=== PATIENT | female | born 1980 | race Two or more races ===

== ENCOUNTER 2021-08-28 10:32 | Emergency (ER) | payer MEDICAID, SELFPAY ==
[2021-08-28 10:36] VITALS: BP 115/71; PULSE 86; RESP 16; TEMP 36.6; O2SAT 99; BMI 21.2
[2021-08-28 10:47] LABS: MANUAL DIFF FLAG NO
[2021-08-28 10:49] LABS: Basophils Percent Auto 0.3 % (0-2); Eosinophils Absolute Auto 0.1 X10*3/uL (0.0-0.4); Eosinophils Percent Auto 0.9 % (0-4); Hemoglobin 13.4 g/dl (12.0-16.0); Imm Gran Abs Auto 0.02 X10*3/uL (0.00-0.03); Imm Gran Pct Auto 0.3 % (0.0-0.4); Lymphocytes Absolute Auto 2.3 X10*3/uL (1.2-4.9); Lymphocytes Percent Auto 34.1 % (20-40); Mean Corpuscular HGB Conc 33.5 g/dl (31.0-35.0); Mean Corpuscular Hemoglobin 31.2 pg (27.0-33.0); Mean Platelet Volume 10.1 fL (9.4-12.3); Monocytes Absolute Auto 0.5 X10*3/uL (0.1-1.2); Neutrophils Absolute Auto 3.8 x10*3/uL (2.0-8.3); Neutrophils Percent Auto 56.4 % (45-73); Platelet Count 180 X10*3/uL (160-400); Red Cell Distribution Width 13.1 % (11.0-16.0); White Blood Count 6.7 X10*3/uL (4.8-10.8)
[2021-08-28 11:07] LABS: Alanine Aminotransferase 11 U/L (0-31); Albumin Level 4.3 g/dL (3.5-5.0); Alkaline Phosphatase 63 U/L (39-117); Anion Gap 7 (12-20); Aspartate Amino Transferase 15 U/L (5-31); Bilirubin Total 0.7 mg/dL (0.0-1.0); Blood Urea Nitrogen 10 mg/dL (9-16); Calcium 9.8 mg/dL (8.4-10.2); Carbon Dioxide 29 mmol/L (22-29); Chloride 105 mmol/L (96-108); Creatinine Clr Calc Pharmacy 67.1; Estimated Glomerular Filt Rate > 60; Glucose Random 76 mg/dL (60-115); Potassium 3.9 mmol/L (3.3-5.1); Sodium 137 mmol/L (135-145); Total Protein 6.9 g/dL (6.5-8.0)
[2021-08-28 11:26] VITALS: BP 116/61; PULSE 68; RESP 15; TEMP 37.1; O2SAT 98
[2021-08-28 11:47] LABS: Appearance Urine HAZY; Color Urine YELLOW; Glucose Urine UA NEG (NEG); Leukocyte Esterase Urine NEG (NEG); Nitrite Urine NEG (NEG); PH 7.5 (5.0-8.0); Urine Blood NEG (NEG); Urine Ketones NEG (NEG); Urine Protein NEG (NEG-TRACE)
--- NOTE | 2021-08-28 12:15 | ECG_ITS ---
Test Reason : high blood pressure Blood Pressure : / mmHG Vent. Rate : 064 BPM Atrial Rate : 064 BPM P-R Int : 164 ms QRS Dur : 072 ms QT Int : 366 ms P-R-T Axes : 033 053 042 degrees QTc Int : 377 ms Normal sinus rhythm Normal ECG No previous ECGs available Referred By: Nikki Egan Electronically Signed By:CHRISTY FERNANDEZ MD
[2021-08-28 12:41] LABS: RBC Urine 0 /HPF (0); Squamous Epithelial Cell Urine TRACE /LPF; WBC Urine 0 /HPF (0-4)
--- NOTE | 2021-08-28 12:46 | ED.GENADULT ---
HPI - General Adult General Chief complaint: General Medical Stated complaint: HBP Time Seen by Provider: 08/28/21 11:05 Source: patient Mode of arrival: ambulatory Limitations: language barrier ( Taiwanese-speaking medical collections representative utilized) History of Present Illness HPI narrative: patient presents to the emergency department for evaluation of concerns about elevated blood pressure. She reports that last night while at rest she began feeling palpitations, tightness in her chest and headache. She reports feeling similar symptoms in the past when she had elevated blood pressure. She states that her blood pressure becomes elevated based on her emotions. One year ago when she was residing in [place] she was on a blood pressure medication which she does not recall the name of. She has not been taking this medication over the past year, she is currently establishing care with a new primary care provider. She denies fevers, chills, nasal congestion, sore throat, neck pain, shortness of breath, difficulty breathing, dyspnea on exertion, nausea, vomiting, abdominal pain, dysuria, urinary frequency, possibility of , pedal edema, generalized weakness, dizziness, lightheadedness. Related Data Allergies Allergy/AdvReac Type Severity Reaction Status Date / Time Sulfa (Sulfonamide Allergy Unknown Unknown Verified 08/28/21 12:15 Antibiotics) Review of Systems Review of Systems: Constitutional : No Weight loss, No Fever, No Chills ENT/Mouth :? No sore throat, No Rhinorrhea Eyes: No Eye Pain, No Swelling Cardiovascular : pos Chest Pain, no SOB, no Dyspnea on Exertion, No Orthopnea, No Edema, positive Palpitations Respiratory : No Cough, No Sputum Gastrointestinal : No Nausea, No Vomiting, No Diarrhea, No abdominal Pain, No Hematochezia, No Melena Genitourinary : No Dysuria, No Urinary Frequency Musculoskeletal : No joint pain, No Myalgias, No Joint Swelling Skin : No Skin Lesions, No rash Neuro : No Weakness, No Numbness, No Dizziness, positive Headache Psych : No Anxiety/Panic, No Depression Heme/Lymph: No Bruising, No Lymphadenopathy Endocrine : No Polyuria, No Polydipsia Yes all other systems are reviewed and are negative [facility] Past Medical History Attestation statement: The following information was validated with the patient. Source: old records reviewed Medical History Fibromyalgia Social History Social History Advance Directives: No Advance Directives Information Provided: Yes Patient : No Physical Exam ED Vital Signs: Vital Signs - 24 hr 08/28/21 10:36 08/28/21 11:26 08/28/21 13:24 Temperature 97.9 F 98.8 F 98.6 F Pulse Rate 86 68 69 Respiratory Rate 16 15 15 Blood Pressure 115/71 116/61 93/59 L Pulse Oximetry 99 98 97 BMI result Body Mass Index 21.2 Vital signs have been reviewed as normal and appeared to be correct. Blood pressure normal.? Heart rate normal.? Respiration rate normal. Temperature normal.? Oxygen saturation normal. Appearance: Alert.?Oriented to person, place and time. No acute distress.?Normal affect. Eyes: Pupils equal, round and reactive to light.? ENT: Pharynx normal.?? Neck: Normal inspection.? Neck supple.?? CVS: Heart sounds normal. Normal heart rate and rhythm.? Pulses normal.?? Respiratory: No respiratory distress.? Lung sounds clear to auscultation bilaterally?? Abdomen: Soft and non-tender. Normoactive bowel sounds. ? Skin: Skin warm and dry.? Normal skin color.? Extremities: No lower extremity edema.? No calf ttp? Neuro: Moves all extremities spontaneously. Sensation intact bilaterally. CN II-XII intact. No focal neuro deficits. Ambulates with normal steady gait. Course Course Course Narrative: patient is a 41-year-old female with a past medical history of fibromyalgia, hypertension, tubal ligation presenting to the emergency department for evaluation of palpitations, chest tightness, headache, and concern for elevated blood pressure. On exam today blood pressure consistently normal, she is afebrile, without tachycardia, tachypnea, or hypoxemia. She is overall well appearing, ambulatory with a steady gait. Reports that her symptoms have significantly decreased since last night. Serum labs obtained reveal a normal CBC, normal CMP, urinalysis without sign of infection, COVID- 19 and influenza testing are negative. Troponin <3.5 and EKG reveals normal sinus rhythm without acute concern for ischemia heart score 0, unlikely to be ACS. Wells score 0, PERC negative, no hypoxia tachycardia or shortness of breath, unlikely to be pulmonary embolism. not currently having any abdominal symptoms. I discussed all these findings with the patient, advised plan of care for discharge home and outpatient follow-up with primary care provider, discussed reasons to return back to the emergency department, all questions were answered. Medical Decision Making Medical Records Medical records reviewed: Yes I reviewed the patient's medical records. Lab Data Lab results reviewed: Yes I reviewed the patient's lab results. Result diagrams: 08/28/21 10:42 08/28/21 10:42 Labs: Lab Results 08/28/21 08/28/21 08/28/21 Range/Units 10:42 10:42 10:42 WBC 6.7 (4.8-10.8) X10*3/uL RBC 4.30 (4.20-5.50) X10*6/uL Hgb 13.4 (12.0-16.0) g/dl Hct 40.0 (37.0-47.0) % MCV 93.0 (80.0-98.0) fL MCH 31.2 (27.0-33.0) pg MCHC 33.5 (31.0-35.0) g/dl RDW 13.1 (11.0-16.0) % Plt Count 180 (160-400) X10*3/uL MPV 10.1 (9.4-12.3) fL Immature Gran % (Auto) 0.3 (0.0-0.4) % Neut % (Auto) 56.4 (45-73) % Lymph % (Auto) 34.1 (20-40) % [place] % (Auto) 8.0 (2-11) % Eos % (Auto) 0.9 (0-4) % Baso % (Auto) 0.3 (0-2) % Lymph # (Auto) 2.3 (1.2-4.9) X10*3/uL [place] # (Auto) 0.5 (0.1-1.2) X10*3/uL Eos # (Auto) 0.1 (0.0-0.4) X10*3/uL Baso # (Auto) 0.0 (0.0-0.2) X10*3/uL Abs Immat Gran (auto) 0.02 (0.00-0.03) X10*3/uL Absolute Neuts (auto) 3.8 (2.0-8.3) x10*3/uL Absolute Nucleated RBC 0.000 (0.0-0.012) X10*3/uL Nucleated RBC % (auto) 0.0 (0.0-0.2) /100WBC Sodium 137 (135-145) mmol/L Potassium 3.9 (3.3-5.1) mmol/L Chloride 105 (96-108) mmol/L Carbon Dioxide 29 (22-29) mmol/L Anion Gap 7 L (12-20) BUN 10 (9-16) mg/dL Creatinine 0.76 (0.5-1.4) mg/dL Estim Creat Clear Calc 67.1 Estimated GFR > 60 Random Glucose 76 (60-115) mg/dL Calcium 9.8 (8.4-10.2) mg/dL Total Bilirubin 0.7 (0.0-1.0) mg/dL AST 15 (5-31) U/L ALT 11 (0-31) U/L Alkaline Phosphatase 63 (39-117) U/L Troponin I High Sens < 3.5 (<3.5-17.0) ng/L Total Protein 6.9 (6.5-8.0) g/dL Albumin 4.3 (3.5-5.0) g/dL Urine Color Urine Appearance Urine pH (5.0-8.0) Ur Specific [place] (1.005-1.025) Urine Protein (NEG-TRACE) MG/DL Urine Glucose (UA) (NEG) MG/DL Urine Ketones (NEG) MG/DL Urine Blood (NEG) Urine Nitrite (NEG) Ur Leukocyte Esterase (NEG) Urine RBC (0) /HPF Urine WBC (0-4) /HPF Ur Squamous Epith Cells /LPF Urine Bacteria /LPF COVID-19 (MIGUEL A) (Negative) COVID-19 Clin Com Influenza Type A (ELIANA) (Negative) Influenza Type B (ELIANA) (Negative) Influenza A & B Note 08/28/21 08/28/21 08/28/21 Range/Units 11:40 12:31 12:31 WBC (4.8-10.8) X10*3/uL RBC (4.20-5.50) X10*6/uL Hgb (12.0-16.0) g/dl Hct (37.0-47.0) % MCV (80.0-98.0) fL MCH (27.0-33.0) pg MCHC (31.0-35.0) g/dl RDW (11.0-16.0) % Plt Count (160-400) X10*3/uL MPV (9.4-12.3) fL Immature Gran % (Auto) (0.0-0.4) % Neut % (Auto) (45-73) % Lymph % (Auto) (20-40) % [place] % (Auto) (2-11) % Eos % (Auto) (0-4) % Baso % (Auto) (0-2) % Lymph # (Auto) (1.2-4.9) X10*3/uL [place] # (Auto) (0.1-1.2) X10*3/uL Eos # (Auto) (0.0-0.4) X10*3/uL Baso # (Auto) (0.0-0.2) X10*3/uL Abs Immat Gran (auto) (0.00-0.03) X10*3/uL Absolute Neuts (auto) (2.0-8.3) x10*3/uL Absolute Nucleated RBC (0.0-0.012) X10*3/uL Nucleated RBC % (auto) (0.0-0.2) /100WBC Sodium (135-145) mmol/L Potassium (3.3-5.1) mmol/L Chloride (96-108) mmol/L Carbon Dioxide (22-29) mmol/L Anion Gap (12-20) BUN (9-16) mg/dL Creatinine (0.5-1.4) mg/dL Estim Creat Clear Calc Estimated GFR Random Glucose (60-115) mg/dL Calcium (8.4-10.2) mg/dL Total Bilirubin (0.0-1.0) mg/dL AST (5-31) U/L ALT (0-31) U/L Alkaline Phosphatase (39-117) U/L Troponin I High Sens (<3.5-17.0) ng/L Total Protein (6.5-8.0) g/dL Albumin (3.5-5.0) g/dL Urine Color YELLOW Urine Appearance HAZY Urine pH 7.5 (5.0-8.0) Ur Specific [place] 1.020 (1.005-1.025) Urine Protein NEG (NEG-TRACE) MG/DL Urine Glucose (UA) NEG (NEG) MG/DL Urine Ketones NEG (NEG) MG/DL Urine Blood NEG (NEG) Urine Nitrite NEG (NEG) Ur Leukocyte Esterase NEG (NEG) Urine RBC 0 (0) /HPF Urine WBC 0 (0-4) /HPF Ur Squamous Epith Cells TRACE /LPF Urine Bacteria NONE /LPF COVID-19 (MIGUEL A) Negative (Negative) COVID-19 Clin Com See Note Influenza Type A (ELIANA) Negative (Negative) Influenza Type B (ELIANA) Negative (Negative) Influenza A & B Note See Note ECG Data Attestation: I personally reviewed and interpreted this ECG as follows: Interpretation: Rate: Sixty-four Rhythm:? normal sinus rhythm [place]:? normal Normal P waves.? Normal JOHN.?? Normal QRS complex.?? ST T wave :?? no ST elevation, no ST depression, no T-wave inversion qTC: 377 prior studies:? none available for review The study has been interpreted contemporaneously by me. Discharge Plan Discharge Clinical Impression: Atypical chest pain Patient Disposition: Home, Self-Care Instructions: Chest Pain (ED), Noncardiac Chest Pain (ED), Panic Attack (ED) Additional Instructions: As we discussed, your blood pressure was normal today. Your COVID- 19 and influenza testing were normal. Labs were normal. please follow-up with your primary care provider in 1-3 days. Return to the emergency department with any new or worsening symptoms or concerns. Interventions: ED Discharge Assessment Last Done: 08/28/21 13:49 Discharge Date/Time: 08/28/21 13:50 Print Language: Taiwanese
[2021-08-28 12:58] LABS: IDNOW Serial# 16C4AD1C; Influenza A Negative (Negative); Influenza B2 Negative (Negative)
[2021-08-28 13:02] LABS: COVID-19 Test Negative (Negative)
[2021-08-28 13:19] LABS: Troponin-I High Sensitivity < 3.5 ng/L (<3.5-17.0)
[2021-08-28 13:24] VITALS: BP 93/59; PULSE 69; RESP 15; TEMP 37; O2SAT 97
== END 2021-08-28 13:50 | disposition home or self-care (01) ==
PROVIDERS: Nurse Practitioner Family; Emergency Provider Emergency Medicine Emergency Medical Services
DX: R07.89 Other chest pain (principal); I10 Essential (primary) hypertension; Z20.822 Contact with and (suspected) exposure to COVID-19; Z79.899 Other long term (current) drug therapy
CPT/HCPCS: 36415; 80053; 81001; 84484; 85025; 87502; 87635; 93005; 99283; 99284

== ENCOUNTER 2021-10-19 08:47 | Outpatient (REF) | payer MEDICAID, SELFPAY ==
[2021-10-19 09:17] LABS: COVID-19 Test Negative (Negative)
== END 2021-10-19 08:48 | disposition home or self-care (01) ==
LOC: HO.LAB 08:47
PROVIDERS: Visit Provider Internal Medicine
DX: Z20.822 Contact with and (suspected) exposure to COVID-19 (principal)
CPT/HCPCS: 87635; C9803

== ENCOUNTER 2021-11-03 14:24 | Outpatient (REF) | payer MEDICAID, SELFPAY ==
[2021-11-03 14:52] LABS: COVID-19 Test Positive (Negative); IDNOW Serial# 08D9AD1C
== END 2021-11-03 14:25 | disposition home or self-care (01) ==
LOC: HO.LAB 14:24
PROVIDERS: Visit Provider Internal Medicine
DX: Z20.822 Contact with and (suspected) exposure to COVID-19 (principal)
CPT/HCPCS: 87635; C9803

== ENCOUNTER 2022-04-08 10:55 | Outpatient (REF) | payer MEDICAID, SELFPAY ==
--- NOTE | ~2022-04-08 | MM_ITS ---
EXAMINATION: MM SCREENING DIGITAL BREAST TOMOSYNTHESIS, BILATERAL CLINICAL INFORMATION: Screening. Asymptomatic. Status post bilateral breast reduction surgery. The lifetime risk of breast cancer based on the Tyrer-Cuzick Model is 8%. COMPARISON: Mammography: None. TECHNIQUE: Digital breast tomosynthesis is performed in both the craniocaudal and mediolateral oblique views along with computer-aided detection (CAD). Synthesized 2D images are generated from the tomosynthesis. FINDINGS: The breasts are heterogeneously dense, which may obscure small masses (ACR BI-RADS breast composition Category c). Within the left breast approximately 5 cm from the nipple there is a well-circumscribed 4 mm density seen laterally. Spot compression film and ultrasound recommended for this lesion. Within the right breast there are multiple circumscribed densities present. In the inferior aspect there is a 10 x 7 mm density 6 cm from the nipple. In the inferior aspect of the right breast there is also a 6 mm circumscribed density approximately 6 cm from nipple. Further evaluation with spot compression views and ultrasound recommended. MM/MM tomosynthesis screening BI IMPRESSION: Bilateral breast densities for further evaluation as described. ASSESSMENT: BI-RADS 0: Incomplete - Need Additional Imaging Evaluation RECOMMENDATION: 1. Additional views of the bilateral breasts. 2. Targeted ultrasound if warranted after review of the additional views. 3. Radiology department staff will contact the patient for additional imaging. This patient's information was entered into a reminder system with a target due date for their next mammogram.
== END 2022-04-08 10:56 | disposition home or self-care (01) ==
LOC: HO.MAMMO 10:55
PROVIDERS: PCP Registered Nurse; Visit Provider Registered Nurse
DX: Z12.31 Encounter for screening mammogram for malignant neoplasm of breast (principal)
CPT/HCPCS: 77063; 77067

== ENCOUNTER 2022-04-30 08:48 | Outpatient (REF) | payer MEDICAID, SELFPAY ==
--- NOTE | ~2022-04-30 | US_ITS ---
EXAMINATION: MM DIAGNOSTIC DIGITAL BREAST TOMOSYNTHESIS, BILATERAL US BREAST TARGETED, BILATERAL CLINICAL INFORMATION: Bilateral circumscribed densities not identified on prior studies of 10/12/2017 and 11/07/2015. COMPARISON: Mammography: 10/12/2017 and 11/07/2015. TECHNIQUE: Digital breast tomosynthesis is performed. 2D images are generated from the tomosynthesis. The following views are obtained: Spot compression views and craniocaudal and mediolateral oblique projections bilaterally. Bilateral targeted breast ultrasound. FINDINGS: The breasts are heterogeneously dense, which may obscure small masses (ACR BI-RADS breast composition Category c). Additional imaging of both breasts demonstrates persistence of multiple circumscribed densities as described previously. Targeted right and left breast ultrasound demonstrated numerous simple-appearing cysts with no abnormal solid mass or region of abnormal distal sound shadowing appreciated. Results are discussed with the patient at time of visit. US/US breast LT limited IMPRESSION: No evidence of malignancy. Bilateral breast cysts. ASSESSMENT: BI-RADS 2: Benign. RECOMMENDATION: Routine annual mammography screening due in 12 months. This patient's information was entered into a reminder system with a target due date for their next mammogram.
--- NOTE | ~2022-04-30 | US_ITS ---
EXAMINATION: MM DIAGNOSTIC DIGITAL BREAST TOMOSYNTHESIS, BILATERAL US BREAST TARGETED, BILATERAL CLINICAL INFORMATION: Bilateral circumscribed densities not identified on prior studies of 10/12/2017 and 11/07/2015. COMPARISON: Mammography: 10/12/2017 and 11/07/2015. TECHNIQUE: Digital breast tomosynthesis is performed. 2D images are generated from the tomosynthesis. The following views are obtained: Spot compression views and craniocaudal and mediolateral oblique projections bilaterally. Bilateral targeted breast ultrasound. FINDINGS: The breasts are heterogeneously dense, which may obscure small masses (ACR BI-RADS breast composition Category c). Additional imaging of both breasts demonstrates persistence of multiple circumscribed densities as described previously. Targeted right and left breast ultrasound demonstrated numerous simple-appearing cysts with no abnormal solid mass or region of abnormal distal sound shadowing appreciated. Results are discussed with the patient at time of visit. US/US breast RT limited IMPRESSION: No evidence of malignancy. Bilateral breast cysts. ASSESSMENT: BI-RADS 2: Benign. RECOMMENDATION: Routine annual mammography screening due in 12 months. This patient's information was entered into a reminder system with a target due date for their next mammogram.
== END 2022-04-30 08:49 | disposition home or self-care (01) ==
LOC: HO.MAMMO 08:48
PROVIDERS: PCP Registered Nurse; Visit Provider Registered Nurse
DX: R92.2 Inconclusive mammogram (principal)
CPT/HCPCS: 76642; 77061; 77065

== ENCOUNTER 2022-05-12 08:00 | Outpatient (REF) | payer MEDICAID, SELFPAY ==
--- NOTE | ~2022-05-12 | MR_ITS ---
EXAMINATION: MR BRAIN WITHOUT CONTRAST CLINICAL INFORMATION: 41-year-old with self-reported cognitive problems and migraines. Memory changes. COMPARISON: None TECHNIQUE: Routine multiplanar multisequence MR imaging of the brain was done without IV contrast. FINDINGS: Brain Volume: Within normal limits within the limitations of qualitative assessment. Structural: No malformations. Brain and Meninges: DWI sequence demonstrates no restricted diffusion to suggest acute or subacute cerebral ischemia. Gradient refocused imaging demonstrates no abnormal susceptibility-weighted signal loss to suggest hemorrhage, hemosiderin staining or abnormal mineralization. The brain is normal in morphology and signal intensity. Matthews-white matter differentiation is well maintained. Mildly prominent perivascular space noted in the inferolateral basal ganglia on the right and smaller perivascular spaces on the left. Normal variants. Incidental note is made of a slightly more prominent focus of T1 shortening in the posterior pituitary measuring 3 mm which could reflect a pars intermedia cyst. Ventricles and Subarachnoid Spaces: The ventricular system and subarachnoid spaces are within normal range; there is no hydrocephalus. Orbital Structures: The visualized orbital structures are grossly unremarkable within the limitations of the study. Vascular: Signal voids are noted in the visualized major intracranial vessels. Osseous Structures, Sinuses/Mastoids, Extracranial Soft Tissues: Unremarkable MR/MR head/brain wo con IMPRESSION: 1. No acute intracranial process. No evidence for hemorrhage, infarction, extra-axial fluid collection, significant space-occupying process, mass effect or hydrocephalus. 2. Possible 3 mm incidental pars intermedia cyst in the posterior pituitary gland. 3. Grossly normal brain volume within the limitations of a qualitative assessment.
== END 2022-05-12 08:01 | disposition home or self-care (01) ==
LOC: HO.MRI 08:00
PROVIDERS: PCP Registered Nurse; Visit Provider Registered Nurse
DX: R41.3 Other amnesia (principal)
CPT/HCPCS: 70551

== ENCOUNTER 2022-09-03 13:41 | Outpatient (REF) | payer MEDICAID, SELFPAY ==
--- NOTE | ~2022-09-03 | US_ITS ---
EXAMINATION: US PELVIS CLINICAL INFORMATION: Abnormal uterine bleeding. COMPARISON: None available. TECHNIQUE: Ultrasound of the pelvis is performed using both transabdominal and transvaginal transducers along with Doppler. Transvaginal imaging is performed due to inadequate visualization transabdominally. FINDINGS: Uterus: The uterus is anteverted and measures 11.3 x 3.8 x 5.1 cm. The double wall endometrial thickness is 7 mm. The uterus is smooth in contour and has normal myometrial echogenicity. No visible fibroid. Adnexa: Both ovaries are visualized. There is normal color flow to the adnexa. There is no ovarian torsion. There is no pelvic ascites or fluid collection. Right ovary measures 2.4 x 1.7 x 2.3 cm. Volume 4.9 mL. Left ovary measures 3.0 x 2.5 x 2.1 cm. Volume 8.3 mL. US/US pelvic and transvaginal IMPRESSION: Normal pelvic ultrasound.
== END 2022-09-03 13:42 | disposition home or self-care (01) ==
LOC: HO.US 13:41
PROVIDERS: PCP Registered Nurse; Visit Provider Advanced Practice Midwife
DX: N93.9 Abnormal uterine and vaginal bleeding, unspecified (principal)
CPT/HCPCS: 76830; 76856

== ENCOUNTER 2023-05-24 17:38 | Outpatient (REF) | payer MEDICAID, SELFPAY ==
[2023-05-24 18:57] LABS: Influenza A PCR NEGATIVE (Negative); Influenza B PCR NEGATIVE (Negative); Resp Syncy Virus RNA Qual PCR NEGATIVE (Negative); SARS COV2 PCR INHOUSE NEGATIVE (Negative)
== END 2023-05-24 17:39 | disposition home or self-care (01) ==
LOC: HO.HHCLNP 17:38
PROVIDERS: Visit Provider Emergency Medicine
DX: R68.89 Other general symptoms and signs (principal); Z11.52 Encounter for screening for COVID-19
CPT/HCPCS: 0241U; 87070; 87147

== ENCOUNTER 2023-05-26 09:45 | Outpatient (REF) | payer MEDICAID, SELFPAY ==
--- NOTE | 2023-05-26 10:01 | EMG_ITS ---
Bilateral median and ulnar motor and sensory studies were performed. Bilateral radial sensory studies were performed and paraspinal muscles were tested with a needle. IMPRESSION: 1. 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 2. Mild bilateral ulnar neuropathy across cubital tunnel. MD HENNY Gutierrez/[place] / [id number]
== END 2023-05-26 09:46 | disposition home or self-care (01) ==
LOC: HO.NEURO 09:45
PROVIDERS: PCP Registered Nurse; Visit Provider Family Medicine
DX: M25.531 Pain in right wrist (principal)
CPT/HCPCS: 95886; 95911

== ENCOUNTER 2023-06-01 07:25 | Outpatient (REF) | payer MEDICAID, SELFPAY ==
--- NOTE | ~2023-06-01 | MM_ITS ---
EXAMINATION: MM SCREENING DIGITAL BREAST TOMOSYNTHESIS, BILATERAL CLINICAL INFORMATION: Screening. Asymptomatic. History of breast reduction. History of bilateral breast cysts seen on bilateral breast ultrasound 04/30/2022. COMPARISON: Mammography: 04/08/2022, 04/30/2022 added views, and 04/30/2022 bilateral breast ultrasound. TECHNIQUE: Digital breast tomosynthesis is performed in both the craniocaudal and mediolateral oblique views along with computer-aided detection (CAD). Synthesized 2D images are generated from the tomosynthesis. FINDINGS: The breasts are heterogeneously dense, which may obscure small masses (ACR BI-RADS breast composition Category c). There are stable small circumscribed oval masses in both breasts, known to represent small cysts and fibrocystic changes. There are retroareolar changes of duct ectasia. These findings appear stable. There are similar post reduction mammoplasty changes in both breasts. No suspicious calcifications, suspicious masses, or areas of architectural distortion. The overall parenchymal pattern is stable and similar to the prior exams. No skin or axillary abnormalities. MM/MM tomosynthesis screening BI IMPRESSION: No mammographic evidence of malignancy. Stable benign findings as detailed. ASSESSMENT: BI-RADS BI-RADS 2 - Benign Findings RECOMMENDATION: Routine annual mammography screening. 1 year F/U This examination should not preclude the clinical evaluation of a suspicious palpable abnormality. This patient's information was entered into a reminder system with a target due date for their next mammogram.
== END 2023-06-01 07:26 | disposition home or self-care (01) ==
LOC: HO.MAMMO 07:25
PROVIDERS: PCP Registered Nurse; Visit Provider Registered Nurse
DX: Z12.31 Encounter for screening mammogram for malignant neoplasm of breast (principal)
CPT/HCPCS: 77063; 77067

== ENCOUNTER → 2023-06-01 07:30 | Outpatient (BNV) | payer MEDICAID, SELFPAY | PROVIDERS: PCP Registered Nurse; Visit Provider Radiology Diagnostic Radiology | DX: Z12.31 Encounter for screening mammogram for malignant neoplasm of breast (principal) | CPT/HCPCS: 77063; 77067 ==

== ENCOUNTER 2023-06-15 11:07 | Outpatient (REF) | payer BC, SELFPAY ==
--- NOTE | ~2023-06-15 | US_ITS ---
EXAMINATION: US PELVIS CLINICAL INFORMATION: Intermenstrual bleeding LMP 06/12/2023 COMPARISON: Pelvic ultrasound 09/03/2022 TECHNIQUE: Ultrasound of the pelvis is performed using both transabdominal and transvaginal transducers along with Doppler. Transvaginal imaging is performed due to inadequate visualization transabdominally. FINDINGS: Uterus: The uterus is retroflexed and measures 11.5 x 4.5 x 4.1 cm. No focal fibroid. The endometrial thickness is 0.8 cm. The uterus is smooth in contour and has normal myometrial echogenicity. No visible fibroid. Adnexa: Both ovaries are visualized. There is normal color flow to the adnexa. There is no ovarian torsion. There is no pelvic ascites or fluid collection. Right ovary measures 2.3 x 1.4 x 1.7 cm. Volume 2.9 mL. Left ovary measures 2.0 x 2.1 x 1.9 cm. Volume 4.2 mL. US/US pelvic and transvaginal IMPRESSION: Normal pelvic ultrasound.
== END 2023-06-15 11:08 | disposition home or self-care (01) ==
LOC: HO.US 11:07
PROVIDERS: PCP Registered Nurse; Visit Provider Advanced Practice Midwife
DX: N93.9 Abnormal uterine and vaginal bleeding, unspecified (principal)
CPT/HCPCS: 76830; 76856

== ENCOUNTER 2023-06-22 10:20 | Outpatient (REF) | payer BC, SELFPAY | END 2023-06-22 10:21 | disposition home or self-care (01) | LOC: HO.HOSX 10:20 | PROVIDERS: Visit Provider Orthopaedic Surgery | DX: Z13.89 Encounter for screening for other disorder (principal) ==

== ENCOUNTER 2023-07-19 15:28 | Outpatient (REF) | payer BC, SELFPAY | END 2023-07-19 15:29 | disposition home or self-care (01) | LOC: HO.HOSX 15:28 | PROVIDERS: Visit Provider Orthopaedic Surgery | DX: Z13.89 Encounter for screening for other disorder (principal) ==

== ENCOUNTER 2024-05-23 09:03 | Outpatient (AMB) | payer BC, SELFPAY ==
[2024-05-23 09:17] VITALS: BP 118/74; PULSE 85; O2SAT 98; BMI 29.5
--- NOTE | 2024-05-23 09:17 | MHC.OFFWIV ---
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 Pt c/o bilateral wrist pain worst at night. Allergies Sulfa (Sulfonamide Antibiotics) Allergy (Unknown, Verified 05/23/24 09:19) Unknown HPI HPI Comments History of Present Illness Details History of Present Illness - The patient is a 43-year-old female presenting with right hand pain and numbness. - She has a diagnosed history of carpal tunnel syndrome in the right hand. - Symptoms started two weeks ago and include significant pain and numbness, especially in the right hand. - Previous nerve conduction studies were conducted, confirming the diagnosis, but x-rays have not yet been done due to scheduling constraints. - She has experienced some relief using a wrist brace and taking Aleve. - The right hand symptoms are more severe in comparison to the left hand. - Patient is right handed dominant. 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 Physical Exam General: Cooperative, healthy appearing, comfortable, no acute distress and well developed Orientation: Patient oriented x3 Head: Normal to inspection Ears: Hearing grossly normal bilaterally Nose: Normal external nose present Face and sinus: Normal facial exam Eyes: Appearance normal, both eyes and all related structures Neck: Normal visual inspection and Yes full ROM Respiratory: Normal respiratory effort and able to speak in complete sentences. Skin: No rashes or lesions noted Neuro: Patient oriented x3 Extremities: as below [facility] Medical History Fibromyalgia Review of Systems Const All systems reviewed & are unremarkable except as noted in HPI and below Physical Exam Vital Signs: Last Vital Signs Pulse 85 05/23/24 09:17 BP 118/74 05/23/24 09:17 Pulse Ox 98 05/23/24 09:17 Oxygen Delivery Method Room Air 05/23/24 09:17 BMI result Body Mass Index 29.5 Extrem Right upper extremity: wrist (+ phalens, + tinels, ) Details: normal to inspection, normal ROM and normal vascular exam; no tenderness, no unusual warmth, no lacerations and no ecchymosis and Extremity exam: right hand Details: normal to inspection, normal capillary refill, neurosensory exam abnormal Details: radial nerve sensory function normal, tendon exam normal and normal ROM of fingers; no tenderness, no unusual warmth, no swelling, no abrasions, no lacerations and no ecchymosis Assessment & Plan Assessment & Plan (1) Wrist pain, right: Code(s): M25.531 - Pain in right wrist Plan: Plan The patient will undergo an x-ray of the right wrist for further evaluation and will be referred to Dr. Hernandez for a specialist consultation and potential surgical intervention. Conservative management with a wrist brace at night and naproxen for pain relief will continue. A referral note and contact information for the orthopedics office will be provided to facilitate follow-up. A work excuse note will be provided as requested by the patient. Patient was informed and verbally consented to the use of an ambient scribe for clinic note documentation during this visit. (2) Carpal tunnel syndrome on right: Code(s): G56.01 - Carpal tunnel syndrome, right upper limb Plan: as above Orders: Orders XR hand wrist RT Today M25.531 - Pain in right wrist Referrals Orthopedics Referral G56.01 - Carpal tunnel syndrome, right upper limb, M25.531 - Pain in right wrist Medications: New naproxen 500 mg PO Q12H PRN 20 tabs 0RF pain Coding Level of Care Code New Pt Level 4 (01411) Diagnoses Wrist pain, right M25.531 Carpal tunnel syndrome on right G56.
== END 2024-05-23 11:00 | disposition home or self-care (01) ==
PROVIDERS: PCP Registered Nurse; Visit Provider Physician Assistant
DX: M25.531 Pain in right wrist (principal); G56.01 Carpal tunnel syndrome, right upper limb

== ENCOUNTER → 2024-05-23 09:03 | Outpatient (BNVA) | payer BC, SELFPAY | PROVIDERS: PCP Registered Nurse; Visit Provider Physician Assistant ==

== ENCOUNTER 2024-05-26 08:51 | Outpatient (REF) | payer BC, SELFPAY ==
--- NOTE | ~2024-05-26 | XR_ITS ---
CLINICAL HISTORY: M25.531 - Pain in right wrist Exam: AP, lateral, and oblique views of the right hand. Comparison: None. Findings: Bony alignment is anatomic. No acute fracture. Joint spaces are well preserved. No erosions. Impression: Negative right hand radiographs. This document has been electronically signed by: Reece Melissa MD on 05/26/2024 09:38:00
== END 2024-05-26 08:52 | disposition home or self-care (01) ==
LOC: HO.HMGCX 08:51
PROVIDERS: PCP Registered Nurse; Visit Provider Physician Assistant
DX: M25.531 Pain in right wrist (principal)
CPT/HCPCS: 73110; 73130

== ENCOUNTER → 2024-05-26 09:08 | Outpatient (BNV) | payer BC, SELFPAY | PROVIDERS: PCP Registered Nurse; Visit Provider Radiology Diagnostic Radiology | DX: M25.531 Pain in right wrist (principal) | CPT/HCPCS: 73130 ==

== ENCOUNTER 2024-06-06 07:27 | Outpatient (REF) | payer BC, SELFPAY | END 2024-06-06 07:28 | disposition home or self-care (01) | LOC: HO.MAMMO 07:27 | PROVIDERS: PCP Registered Nurse; Visit Provider Registered Nurse | DX: Z12.31 Encounter for screening mammogram for malignant neoplasm of breast (principal) | CPT/HCPCS: 77063; 77067 ==

== ENCOUNTER → 2024-06-06 07:30 | Outpatient (BNV) | payer BC, SELFPAY | PROVIDERS: PCP Registered Nurse; Visit Provider Internal Medicine | DX: Z12.31 Encounter for screening mammogram for malignant neoplasm of breast (principal) | CPT/HCPCS: 77063; 77067 ==

== ENCOUNTER 2024-07-03 14:04 | Outpatient (AMB) | payer BC, SELFPAY ==
--- NOTE | 2024-07-03 14:23 | MHC.OFFVIS ---
Intake Visit Reasons: New Pt - Right CTS - EMG done Intake Note: Steven is a 43 year old right hand dominant female who presents today as a new patient with complaints of Right Wrist numbness, tingling and pain. EMG done on 05/26/23. Patient reports that her left is worse than her right however she only had an EMG done on the right wrist. MPRESSION: 1. 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 2. Mild bilateral ulnar neuropathy across cubital tunnel. Senior Sharepoint Architect Required: Yes Senior Sharepoint Architect Name: Trinity Topete [id number] Allergies Sulfa (Sulfonamide Antibiotics) Allergy (Unknown, Verified 05/23/24 09:19) Unknown HPI HPI New Pt - Right CTS - EMG done: Details: Steven is a 43 year old right hand dominant female who presents today as a new patient with complaints of Right Wrist numbness, tingling and pain. EMG done on 05/26/23. Patient reports that her left is worse than her right however she only had an EMG done on the right wrist. MPRESSION: 1. 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 2. Mild bilateral ulnar neuropathy across cubital tunnel. [facility] Medical History Fibromyalgia Review of Systems Const All systems reviewed & are unremarkable except as noted in HPI and below Physical Exam Extrem Other: Neuro: Normal sensation of the tips of all digits of bilateral hands in the office today No thenar or intrinsic wasting. Good APB muscle firing and good finger cross. Vascular: Capillary refill brisk. ROM: Patient can make a fist and extend all their digits. Skin: No lacerations or abrasions noted. General: No ecchymosis. No erythema or evidence of infection. [] Assessment & Plan Assessment & Plan (1) Carpal tunnel syndrome on right: Code(s): G56.01 - Carpal tunnel syndrome, right upper limb Category: Medical (2) Numbness and tingling of left hand: Code(s): R20.0 - Anesthesia of skin; R20.2 - Paresthesia of skin Category: Medical Plan 1. Right carpal tunnel syndrome 2. Numbness and tingling of left hand Patient is educated about this condition Patient is educated about the treatment options available Patient states that she is not interested in any surgery at this time, as she can not afford to be out of work Patient was provided with bilateral Velcro wrist splints to wear while sleeping Patient was educated she should follow-up with us if she becomes interested in surgical intervention, sooner any acute concerns Coding Level of Care Code New Pt Level 3 (54653) Diagnoses Carpal tunnel syndrome on right G56.01 Numbness and tingling of left hand R20.0; R20.2
--- OUTSIDE RECORDS SUMMARY | 2024-07-03 17:38 | XMS_ITS | Encounter Summary ---
Author Organization [facility] Address [address] [place] [address] Care Team Providers Care Child'S Nurse Name Role Phone Maria Del Carmen Carpio Primary Care Provider [phone] Reason for Visit * Reason Comments Pre-visit Planning SDOH negative, Tobac co screening negative. Encounter Details Date Type Department Care Team ([facility] Contact Info) Description 06/04/2024 Patient Outreach [facility] [address] [place] [address] Maria Del Carmen Carpio FNP [address] [place] [address] Pre-visit Planning (SDOH negative, Tobacco screening negative.) Social History Tobacco Use Types Packs/Day Years Used Date Smoking Tobacco: Every Day Cigarettes Passive Smoke Exposure: Current Smokeless Tobacco: Never Comments:12 - 15 Cigarettes a day. Alcohol Use Standard Drinks/Week Comments Yes 2 (1 standard drink = 0.6 oz pur e alcohol) Socially Housing Stability Answer Date Recorded What is your housing situation today? I have naty terrell 06/04/[address] you li ve. Do you have problems with any of the following? None of the above 06/04/2024 Food Insecurity Answer Date Recorded Within the past 12 months, y ou worried that your food would run out before you got money to buy more: Never True 06/04/2024 Within the past 12 months,th e food you bought just didn't last and you didn't have enough money to get more: Never True Transportation Answer Date Recorded In the past 12 months, has l ack of transportation kept you from medical appts, meetings, work or from getting things needed for daily living? No 06/04/2024 Utilities Answer Date Recorded In the past 12 months, has t he electric, gas, oil or water company threatened to shut off services in your home? No 06/04/2024 Internet Access Answer Date Recorded Internet Access Q1 Yes 06/04/2024 Internet Access Q2 Not on file 06/04/2024 Comments No Sex and Gender Information Value Date Recorded Sex Assigned at Female 03/08/2022 10:40 AM EDT Legal Sex Female 10:40 AM EDT Gender Identity Female 03/08/2022 10:40 AM EDT Sexual Orientation Choose not to disclose 2021 10:40 AM EDT documented as of this encounter Progress Notes * Mckenna Guzman - 06/04/2024 1:16 PM EST CC Mckenna Burns placed successful outbound call to patient for pre-visit planning. Patient name and confirmed. Patient confirms appt date and time, and has transportation arrangements. Biggest concern for appointment at this time is patient has carpal tunnel, exams were performed and has no heardback. Appropriate screenings completed in anticipation of appointment. documented in this encounter Plan of Treatment Not on file documented as of this encounter Visit Diagnoses Not on filedocumented in this encounter Care Teams Child'S Nurse Relationship Specialty Start Date End Date Maria Del Carmen Carpio FNP [address] [place] [id number] PCP - General Family Medicine 04/08/22 documented as of this encounter
--- OUTSIDE RECORDS SUMMARY | 2024-07-03 17:38 | XMS_ITS | Encounter Summary ---
Author Organization [facility] Address [address] [place] [address] [address] [place] [address] Care Team Providers Care Field Auditor Name Role Phone Maria Del Carmen Carpio Primary Care Provider Parul Killian MD Unavailable [phone] Reason for Visit * Reason Onset Date Comments Reschedule 2023 Encounter Details Date Type Department Care Team ([facility] st Contact Info) Description 2023 Telephone [facility] [address] [place] [address] Maria Del Carmen Carpio FNP [address] [place] [address] Reschedule Social History Tobacco Use Types Packs/Day Years Used Date Smoking Tobacco: Every Day Cigarettes Passive Smoke Exposure: Current Smokeless Tobacco: Never Comments:12 - 15 Cigarettes a day. Alcohol Use Standard Drinks/Week Comments Yes 2 (1 standard drink = 0.6 oz pur e alcohol) Socially Comments No Sex and Gender Information Value Date Recorded Sex Assigned at Female 03/08/2022 10:40 AM EDT Legal Sex Female 10:40 AM EDT Gender Identity Female 03/08/2022 10:40 AM EDT Sexual Orientation Choose not to disclose 2021 10:40 AM EDT documented as of this encounter Miscellaneous Notes * Telephone Encounter - Emma Agarawl - 2023 3:34 PM EDT Tc from pt requesting r/s Procedure appt. documented in this encounter Plan of Treatment Not on file documented as of this encounter Visit Diagnoses Not on filedocumented in this encounter Care Teams Field Auditor Relationship Specialty Start Date End Date Maria Del Carmen Carpio FNP [address] [facility] [place] [address] PCP - General Family Medicine 04/08/22 Parul Killian MD [address] [place] [address] [place] [address] Neurology 06/11/24 documented as of this encounter
--- OUTSIDE RECORDS SUMMARY | 2024-07-03 17:38 | XMS_ITS | Encounter Summary ---
Author Organization [facility] Address [address] [place] [address] Care Team Providers Care Recreation Therapy Teacher Name Role Phone Maria Del Carmen Carpio JONATAN Primary Care Provider [phone] Parul Killian MD Unavailable + [phone] Encounter Details Date Type Department Care Team (Latest Contact Info) Description 06/11/2024 Travel Social History Tobacco Use Types Packs/Day Years Used Date Smoking Tobacco: Every Day Cigarettes Passive Smoke Exposure: Current Smokeless Tobacco: Never Comments:12 - 15 Cigarettes a day. Alcohol Use Standard Drinks/Week Comments Yes 2 (1 standard drink = 0.6 oz pur e alcohol) Socially Depression Answer Date Recorded Patient Health Questionnaire-9 Score 6 06/11/2024 Patient Health Questionnaire-9 Score 6 06/11/2024 Last PHQ-9: Questionnaire Data Not on file 0 06/11/2024 Housing Stability Answer Date Recorded What is [...] from getting things needed for daily living? Yes, it has kept me from medical appointments or getting medications. 06/11/2024 Utilities Answer Date Recorded In the past 12 months, has t he [employer], [employer], oil or water company threatened to shut off services in your home? No 06/04/2024 Depression Answer Date Recorded Patient Health Questionnaire-2 Score 1 06/11/2024 Internet Access Answer Date Recorded Internet Access Q1 Yes 06/04/2024 Internet Access Q2 Not on file 06/04/2024 Comments No Sex and Gender Information Value Date Recorded Sex Assigned at Female 03/08/2022 10:40 AM EDT Legal Sex Female 10:40 AM EDT Gender Identity Female 03/08/2022 10:40 AM EDT Sexual Orientation Choose not to disclose 2021 10:40 AM EDT documented as of this encounter Plan of Treatment Not on file documented as of this encounter Visit Diagnoses Not on filedocumented in this encounter Additional Health Concerns Assessment Noted Time PHQ-9 Depression Total Score: 6 06/11/19 25 2:35 PM EST documented as of this encounter Care Teams Recreation Therapy Teacher Relationship Specialty Start Date End Date Maria Del Carmen Carpio FNP [address] [place] [id number] PCP - General Family Medicine 04/08/22 Parul Killian MD [address] [place] [address] [place] [address] Neurology 06/11/24 documented as of this encounter
--- OUTSIDE RECORDS SUMMARY | 2024-07-03 17:38 | XMS_ITS | Patient Health Record ---
[facility] Address [address] [place] [address] Care Team Providers Care Spray Booth Operator Name Role Phone Maria Del Carmen Carpio Primary Care Provider Monica Menon Unavailable [phone] Allergies Allergen (clinical drug ingredient) Drug/Non Drug Allergy documented on EMR Reaction Allergy Type Onset Date Status Substance with sulfonamide structure and antibacterial mechanism of action (substance) Sulfa Antibiotics hives Drug Allergy Active Reason For Referral No Information Medications Medication SIG (Take, Route, Fr equency, Duration) Notes Start Date End Date Status Sertraline HCl 50 MG 1 tablet Orally Once a day Active SUMAtriptan 10 MG/ACT 1 puff at onset of headache may repeat dose after 1 hour up to 3 doses per day as needed Nasally Once a day for 30 day(s) Active Gabapentin 300 MG 1 capsule Orally Once a day Active hydrOXYzine HCl 10 MG 1 tablet as needed Orally Once a day Active Ciclopirox 0.77 % 1 application Performance Instructor ally Twice a day for 365 days Active Nabumetone 500 MG 1 tablet Orally Twice a day Active Social History Tobacco Use: Social History Observation Description Date Details (start date - stop date) Current Smoker NA - NA Tobacco Use/Smoking Question Answer Notes Are you a: current smoker How often do you smoke cigarettes? every day How many cigarettes a day do you smoke? 6-10 How soon after you wake up do you smoke your fir st cigarette? within 5 minutes Alcohol Screen Question Answer Notes Did you have a drink contain ing alcohol in the past year? Yes How often did you have a dri nk containing alcohol in the past year? Monthly or less (1 point) Points 1 Interpretation Negative Tobacco use other than smoking: Question Answer Notes Are you an other tobacco user? No Plan Of Treatment No Information Insurance Providers Payer Name Payer Address Payer Phone Subscriber Number Group Number Insured Name Patient Relationship to Insured Coverage Start Date Coverage End Date [facility] [employer] [facility] [address] [place] [address] [id number] Stephen Richardson Spouse - patient is the spouse of the insured Medical (General) History Medical History History ICD Code Anxiety Fibromyalgia Headaches/Migraines Surgical History Surgery Date(Month/Year) breast reduction 2017
--- OUTSIDE RECORDS SUMMARY | 2024-07-03 17:38 | XMS_ITS | Encounter Summary ---
Author Organization [facility] Address [address] [place] [address] [address] [place] [address] Care Team Providers Care Tonsorial Artist Name Role Phone Maria Del Carmen Carpio Primary Care Provider [phone] Parul Killian MD Unavailable [phone] Encounter Details Date Type Department Care Team ([facility] st Contact Info) Description 06/11/2024 1:15 PM EST Office Visit [facility] [address], [place] [id number] Mraia Del Carmen Carpio FNP [address] [place] [address] Encounter for routine history and physical examination of adult (Primary Dx); Routine health maintenance; Abnormal uterine bleeding; Fibromyalgia; Bilateral carpal tunnel syndrome; Cubital tunnel syndrome of both upper extremities; Tobacco use; Retinitis pigmentosa Social History Tobacco Use Types Packs/Day Years Used Date Smoking Tobacco: Every Day Cigarettes Passive Smoke Exposure: Current Smokeless Tobacco: Never Tobacco Cessation:Ready to Q uit: Not Asked; Counseling Given: Not Answered Comments:12 - 15 Cigarettes a day. Alcohol [...] AM EDT documented as of this encounter Last Filed Vital Signs Vital Sign Reading Time Taken Comments Blood Pressure 130/81 06/11/2024 1:29 PM EST Pulse 83 06/11/2024 1:29 PM EST Temperature 36.6 ??C (97.9 ??F) 06/11/2024 1:29 PM ES T Respiratory Rate 22 06/11/2024 1:29 PM EST Oxygen Saturation 98% 06/11/2024 1:29 PM EST Inhaled Oxygen Concentration - - Weight 67.7 kg (149 lb 4 oz) 06/11/2024 1:29 PM EST Height 151.1 cm (4' 11.5 ) 06/11/2024 1:29 PM ES T Body Mass Index 29.64 06/11/2024 1:29 PM EST documented in this encounter Progress Notes * Maria Del Carmen Carpio, JONATAN - 06/11/2024 1:15 PM EST Subjective: Steven Garcia is a 43 y.o. female who presents to the office for a physical exam. HPI Carpal Tunnel Syndrome: diagnosed May 2023 w/ EMG. Has been using wrist splints at night and naproxen PO PRN with some relief. Has upcoming appt with [facility] for further consult. Symptoms aggravated by repetitive motions. Tobacco use: 10 cigg/day. Planning to cut down. Declines NRT . AUB: reports menses has been regular since pelvis US. No further intermenstrual bleeding. Aware to follow up with any irregularities for consideration of EMB. Specialists: Neurology: Dr. Killian - migraines Podiatry Spanish Interpreter/Translator Retinal Specialist: [facility]. Dr. Cheire Talbot. butcher's assistant: Josefina Turcios ([facility]) Past Surgical History: Procedure Laterality Date BREAST SURGERY Bilateral 2013 Breast reduction, approx 2013 in [place] SECTION, UNSPECIFIED x 2 TUBAL LIGATION Bilateral Family History Problem Relation Fibromyalgia Mother Hypertension Mother Fibromyalgia Mother's Sister Asthma Mother's Sister Uterine cancer Mother's Sister Social History Employment - working in the [employer] Substance Use - Smoking approx 10 cigg/day, x 24 years. No AUD concerns. Denies use of opioids or cocaine. Sexual history - sexually active with AMAB partner. Denies IPV concerns. Mental health -established with psych team through [facility]. Denies SI/HI/thoughts of self harm LMP - Reports menses occur approx every 28-32 days, regular Contraception: BT Patient's last menstrual period was 05/30/2024 (within days). Allergies Allergen Reactions Orphenadrine Sulfa Antibiotics Review of Systems Constitutional: Negative for chills, fatigue and fever. HENT: Negative for congestion and sore throat. Eyes: Positive for visual disturbance. Respiratory: Negative for cough, shortness of breath and wheezing. Cardiovascular: Negative for chest pain and palpitations. Gastrointestinal: Negative for constipation, diarrhea, nausea and vomiting. Musculoskeletal: Positive for arthralgias. Skin: Negative for rash. Psychiatric/Behavioral: Negative for suicidal ideas. Visit Vitals BP 130/81 (BP Location: Right arm, Patient Position: Sitting, BP Cuff Size: Adult) Pulse 83 Temp 97.9 ??F (36.6 ??C) (Oral) Resp 22 Ht 4' 11.5 (1.511 m) Wt 149 lb 4 oz (67.7 kg) LMP 05/30/2024 (Within Days) SpO2 98% BMI 29.64 kg/m?? OB Status Having periods Smoking Status Every Day BSA 1.69 m?? Physical Exam Vitals reviewed. Constitutional: Appearance: Normal appearance. HENT: Head: Normocephalic and atraumatic. Right Ear: Tympanic membrane, ear canal and external ear normal. Left Ear: Tympanic membrane, ear canal and external ear normal. Nose: Nose normal. No congestion. Mouth/Throat: Mouth: Mucous membranes are moist. Pharynx: No oropharyngeal exudate or posterior oropharyngeal erythema. Eyes: General: Right eye: No discharge. Left eye: No discharge. Extraocular Movements: Extraocular movements intact. Pupils: Pupils are equal, round, and reactive to light. Cardiovascular: Rate and Rhythm: Normal rate and regular rhythm. Heart sounds: Normal heart sounds. Pulmonary: Effort: Pulmonary effort is normal. Breath sounds: Normal breath sounds. Musculoskeletal: Cervical back: Normal range of motion. No tenderness. Skin: General: Skin is warm. Neurological: Mental Status: She is alert and oriented to person, place, and time. Psychiatric: Mood and Affect: Mood normal. Behavior: Behavior normal. Problem List Items Addressed This Visit Nervous Bilateral carpal tunnel syndrome Overview EMG completed 05/26/23: demonstrated moderately severe right and mild to moderate left median neuropathy across carpal tunnel. Mild bilateral ulnar neuropathy across cubital tunnel. Current Assessment & Plan - Continues with wrist splints at night and naproxen PRN - Scheduled for [facility] visit later this month Cubital tunnel syndrome of both upper extremities Overview EMG completed 05/26/23: Mild bilateral ulnar neuropathy across cubital tunnel. Current Assessment & Plan - Consult Jun 2024 at [facility] Genitourinary Abnormal uterine bleeding Current Assessment & Plan Unremarkable pelvic US Jun 2023 Pap August 2022 NILM, HPV neg Scheduled for EMB at [facility] but did not attend. Then referred to outside [facility]. Reports that she has nothad consult, but no longer with breakthrough bleeding. Follow up/concerning signs/symptoms reviewed Musculoskeletal Fibromyalgia Current Assessment & Plan -Continue multifactorial tx approach to fibromyalgia -Continue with holistic approach to tx: nutrition, routine exercise, sleep. Established with team. -Tried acupuncture, does not like needles -Cont gabapentin to 200mg nightly. Reviewed med safety and SE Relevant Medications gabapentin (Neurontin) 100 MG capsule Other Tobacco use Current Assessment & Plan -Smoking approx 10cigg/day x 24 years -Declines interest in NRT or smoking cessation clinic today -Smoking cessation counseling provided Routine health maintenance Overview -Pap: NILM, HPV neg 08/18/22 -Mammo: BIRADS 2 on 06/01/23 -OPH: established with -Colon CA screening: routine screening starting at 45 y/o per ACS -Last Physical Exam: 06/11/24 Relevant Orders Lipid Panel, Standard Hemoglobin A1c TSH with Reflex to Free T4 Comprehensive Metabolic Panel CBC auto differential Chlamydia/N. Gonorrhoeae RNA, TMA, Urogenitial Hepatitis C Viral RNA, Quantitative, Real-Time PCR RPR (Monitor) with Reflex to Titer HIV-1/2 Antigen and Antibodies, Fourth Generation, with Reflexes Hepatitis B Core Antibody, Total Hepatitis B Surface Antibody, Qualitative Hepatitis B surface antigen, EIA Retinitis pigmentosa Overview Following with [facility] - Dr. Cherie Talbot Consult Mar 2024: no known fam hx with blindness or early vision loss. Recommended genetic testing at [facility] Current Assessment & Plan - Continue following with specialist Other Visit Diagnoses Encounter for routine history and physical examination of adult - Primary -Cardiopulmonary exam WNL -Encouraged healthy lifestyle habits including routine physical exercise and diet rich in fruits and vegetables -Declined vaccinations today, encouraged to follow up if interested in future Follow up: 6 months, sooner as needed Current Outpatient Medications Medication Sig Dispense Refill dorzolamide (Trusopt) 2 % ophthalmic solution INSTILL 1 DROP IN LEFT EYE THREE TIMES DAILY hydrOXYzine HCl (Atarax) 10 MG tablet TAKE 1-2 TABLETS BY MOUTH EVERY NIGHT AT BEDTIME NEEDED FOR SLEEP naproxen (Naprosyn) 500 MG tablet Take 1 tablet by mouth if needed in the morning and at bedtime for pain. propranolol (Inderal) 10 MG tablet TAKE 1 TABLET BY MOUTH TWICE DAILY NEEDED. TOME 1 NA PASTILLAHASTA DOS VECES AL DEEJAY ALESIA INDICADO NECESITA sertraline (Zoloft) 100 MG tablet Take 1 tablet by mouth Once per day. gabapentin (Neurontin) 100 MG capsule Take 2 capsules (200 mg) by mouth at bedtime. 60 capsule 11 No current facility-administered medications for this visit. There is no immunization history on file for this patient. documented in this encounter Miscellaneous Notes * Assessment & Plan Note - JONATAN Suarez - 06/11/2024 6:30 PM ESTAssociated Problem(s): Retinitis pigmentosa - Continue following with specialist * Assessment & Plan Note - JONATAN Suarez - 06/11/2024 3:29 PM ESTAssociated Problem(s): Tobacco use -Smoking approx 10cigg/day x 24 years -Declines interest in NRT or smoking cessation clinic today -Smoking cessation counseling provided * Assessment & Plan Note - JONATAN Suarez - 06/11/2024 3:07 PM ESTAssociated Problem(s): Fibromyalgia -Continue multifactorial tx approach to fibromyalgia -Continue with holistic approach to tx: nutrition, routine exercise, sleep. Established with team. -Tried acupuncture, does not like needles -Cont gabapentin to 200mg nightly. Reviewed med safety and SE * Assessment & Plan Note - JONATAN Suarez - 06/11/2024 3:03 PM ESTAssociated Problem(s): Cubital tunnel syndrome of both upper extremities - Consult Jun 2024 at [facility] * Assessment & Plan Note - JONATAN Suarez - 06/11/2024 3:02 PM ESTAssociated Problem(s): Bilateral carpal tunnel syndrome - Continues with wrist splints at night and naproxen PRN - Scheduled for [facility] visit later this month * Assessment & Plan Note - JONATAN Suarez - 06/11/2024 1:40 PM ESTAssociated Problem(s): Abnormal uterine bleeding Unremarkable pelvic US Jun 2023 Pap August 2022 NILM, HPV neg Scheduled for EMB at [facility] but did not attend. Then referred to outside [facility]. Reports that she has nothad consult, but no longer with breakthrough bleeding. Follow up/concerning signs/symptoms reviewed documented in this encounter Plan of Treatment Scheduled Orders Name Type Priority Associated Diagnoses Orde r Schedule Lipid Panel, Standard Lab Routine Routine health maintenance Expected: 06/11/2024 (Approximate), Expires: 06/11/2025 Hemoglobin A1c Lab Routine Routine health maintenance Expected: 06/11/2024 (Approximate), Expires: 06/11/2025 TSH with Reflex to Free T4 Lab Routine Routine health maintenance Expected: 06/11/2024 (Approximate), Expires: 06/11/2025 Comprehensive Metabolic Panel Lab Routine Routine health maintenance Expected: 06/11/2024 (Approximate), Expires: 06/11/2025 CBC auto differential Lab Routine Routine health maintenance Expected: 06/11/2024, Expires: 06/11/2025 Chlamydia/N. Gonorrhoeae RNA, TMA, Urogenitial Microbiology Routine Routine health maintenance Expected: 06/11/2024, Expires: 06/11/2025 Hepatitis C Viral RNA, Quantitative, Real-Time PCR Lab Routine Routine health maintenance Expected: 06/11/2024 (Approximate), Expires: 06/11/2025 RPR (Monitor) with Reflex to??Titer Lab Routine Routine health maintenance Expected: 06/11/2024 (Approximate), Expires: 06/11/2025 HIV-1/2 Antigen and Antibodies, Fourth Generation, with Reflexes Lab Routine Routine health maintenance Expected: 06/11/2024 (Approximate), Expires: 06/11/2025 Hepatitis B Core Antibody, Total Lab Routine Routine health maintenance Expected: 06/11/2024 (Approximate), Expires: 06/11/2025 Hepatitis B Surface Antibody, Qualitative Lab Routine Routine health maintenance Expected: 06/11/2024 (Approximate), Expires: 06/11/2025 Hepatitis B surface antigen, EIA Lab Routine Routine health maintenance Expected: 06/11/2024 (Approximate), Expires: 06/11/2025 documented as of this encounter Visit Diagnoses Diagnosis Encounter for routine history and physical examination of adult- Primary Routine health maintenance Unspecified examination Abnormal uterine bleeding Unspecified disorder of menstruation and other abnormal bleeding from female genital tract Fibromyalgia Unspecified myalgia and myositis Bilateral carpal tunnel syndrome Carpal tunnel syndrome Cubital tunnel syndrome of both upper extremities Tobacco use Retinitis pigmentosa Pigmentary retinal dystrophy documented in this encounter Additional Health Concerns Assessment Noted Time PHQ-9 Depression Total Score: 6 06/11/19 25 2:35 PM EST documented as of this encounter Care Teams Tonsorial Artist Relationship Specialty Start Date End Date Maria Del Carmen Carpio FNP [address] [place] [id number] PCP - General Family Medicine 04/08/22 Parul Killian MD [address] [place] [address] Dr Cardenas [facility] [place] [place] [address] Neurology 06/11/24 documented as of this encounter
--- OUTSIDE RECORDS SUMMARY | 2024-07-03 17:38 | XMS_ITS | Clinical Summary ---
Author Organization [employer] [facility] Address [address] [place] [address] [address] [place] [address] Care Team Providers Care Environmental Health Inspector Name Role Phone Maria Del Carmen Carpio JONATAN Primary Care Provider [phone] Parul Killian MD Unavailable Allergies Active Allergy Reactions Criticality Noted Date Comments Orphenadrine 02/22/2022 Sulfa Antibiotics 04/29/2022 Medications gabapentin (Neurontin) 100 MG capsuleIndicati ons:Fibromyalgi a Take 2 capsules (200 mg) by mouth at bedtime. 60 capsule 11 06/11/19 25 026 Active dorzolamide (Trusopt) 2 % ophthalmic solution INSTILL 1 DROP IN LEFT EYE THREE TIMES DAILY 04/13/20 24 Active hydrOXYzine HCl (Atarax) 10 MG tablet TAKE 1-2 TABLETS BY MOUTH EVERY NIGHT AT BEDTIME NEEDED FOR SLEEP 02/29/20 24 Active naproxen (Naprosyn) 500 MG tablet Take 1 tablet by mouth if needed in the morning and at bedtime for pain. 05/23/19 25 Active propranolol (Inderal) 10 MG tablet TAKE 1 TABLET BY MOUTH TWICE DAILY NEEDED. TOME 1 NA PASTILLA HASTA DOS VECES AL DEEJAY ALESIA INDICADO NECESITA 12/27/19 24 Active sertraline (Zoloft) 100 MG tablet Take 1 tablet by mouth Once per day. 12/28/19 24 Active gabapentin (Neurontin) 100 MG capsuleIndicati ons:Fibromyalgi a Take 2 capsules (200 mg) by mouth at bedtime. 60 capsule 11 04/26/20 22 025 Discontinued(Re order (will not trigger notification to Pharmacy)) sertraline (Zoloft) 25 MG tabletIndicatio ns:Anxiety Take 1 tablet (25 mg) by mouth in the morning. 90 tablet 1 04/26/20 22 025 Discontinued( erapy completed) hydrocortisone 1 % ointmentIndicat ions:Rash and nonspecific skin eruption Apply up to twice day for a maximum of 10 days to hives 56 g 05/31/19 23 025 Discontinued( erapy completed) traZODone (Desyrel) 50 MG tabletIndicatio ns:Other insomnia TAKE 0.5 TABLETS (25 MG) BY MOUTH IF NEEDED AT BEDTIME FOR SLEEP. 30 tablet 2 07/06/19 23 025 Discontinued( erapy completed) SUMAtriptan (Imitrex) 50 MG tablet TAKE 1 TABLET BY MOUTH EVERY DAY. AT LEAST 2 HOURS BETWEEN DOSES NEEDED. 9 tablet 3 10/27/19 23 025 Discontinued( erapy completed) Diclofenac Sodium 1 % gelIndications: Right wrist pain Apply to the affected area TID prn 50 g 1 05/05/20 23 025 Discontinued( erapy completed) Active Problems Problem Noted Date Diagnosed Date Bilateral carpal tunnel syndrome 06/11/2024 Overview (06/11/2024): EMG completed 05/26/23: demonstrated moderately severe right and mild to moderate left median neuropathy across carpal tunnel. Mild bilateral ulnar neuropathy across cubital tunnel. Assessment & Plan (06/11/2024 6:36 PM EST): - Continues with wrist splints at night and naproxen PRN - Scheduled for [facility] [place] later this month Cubital tunnel syndrome of both upper extremitie s 06/11/2024 Overview (06/11/2024): EMG completed 05/26/23: Mild bilateral ulnar neuropathy across cubital tunnel. Assessment & Plan (06/11/2024 3:03 PM EST): - Consult Jun 2024 at [facility] Retinitis pigmentosa 06/11/2024 Overview (06/11/2024): Following with [facility] - Dr. Cherie Talbot Consult Mar 2024: no known fam hx with blindness or early vision loss. Recommended genetic testing at [facility] Assessment & Plan (06/11/2024 6:30 PM EST): - Continue following with specialist Abnormal uterine bleeding 09/12/2023 Assessment & Plan (06/11/2024 3:06 PM EST): Unremarkable pelvic US Jun 2023 Pap August 2022 NILM, HPV neg [facility]. Then referred to outside [facility]. Reports that she has not had consult, but no longer with breakthrough bleeding. Follow up/concerning signs/symptoms reviewed Routine health maintenance 04/30/2022 Overview (06/12/2024): -Pap: NILM, HPV neg 08/18/22 -Mammo: BIRADS 2 on 06/01/23 -OPH: established with -Colon CA screening: routine screening starting at 45 y/o per ACS -Last Physical Exam: 06/11/24 Assessment & Plan (04/30/2022 8:04 AM EST): -Pap: due, re-schedule appt -Mammo - reports multiple family members with uterine CA, denies known genetic abnormality such as Bernard syndrome. Screening with mammo previously ordered, pending -Optometry - referred to [facility] 03/26/22 -Colon CA screening: routine screening starting at 45 y/o per ACS Tobacco use 04/29/2022 Assessment & Plan (06/11/2024 6:37 PM EST): -Smoking approx 10cigg/day x 24 years -Declines interest in NRT or smoking cessation clinic today -Smoking cessation counseling provided Assessment & Plan (04/30/2022 8:02 AM EST): -Smoking approx 10cigg/day x 22 years -Declines interest in NRT or smokis cessation clinic today -Follow up if interested in the future Fibromyalgia 03/27/2022 Assessment & Plan (06/11/2024 3:07 PM EST): -Continue multifactorial tx approach to fibromyalgia -Continue with holistic approach to tx: nutrition, routine exercise, sleep. Established with team. -Tried acupuncture, does not like needles -Cont gabapentin to 200mg nightly. Reviewed med safety and SE Assessment & Plan (04/30/2022 8:01 AM EST): -Discussed multifactorial tx approach to fibromyalgia -Continue with holistic approach to tx: nutrition, routine exercise, sleep. On waiting list to establish with therapist and psychiatrist -Continue with [facility] acupuncture clinic -Increase gabapentin to 200mg nightly. Reviewed med safety and SE Migraine 03/27/2022 Resolved Problems Problem Noted Date Diagnosed Date Resolved Date Memory change 04/30/2022 06/11/2024 Assessment & Plan (04/30/2022 9:26 AM EST): -Pt concerned about changes in memory over the past few months -No neurologic deficits noted on exam -No known family history of early onset dementia -Mini Cog score 3 -MRI ordered -Referral to Neuro for further eval Encounters Date Type Department Care Team Description 06/11/2024 1:15 PM EST Office Visit [facility] [address] [place] [address] Maria Del Carmen Carpio FNP Encounter for routine history and physical examination of adult (Primary Dx); Routine health maintenance; Abnormal uterine bleeding; Fibromyalgia; Bilateral carpal tunnel syndrome; Cubital tunnel syndrome of both upper extremities; Tobacco use; Retinitis pigmentosa 06/11/2024 Patient Outreach [facility] [address] [place] [address] Maria Del Carmen Carpio FNP Care Coordination (CHW outreach for SDOH PT-1 and food needs- LVM ) 06/11/2024 Travel 06/07/2024 Telephone [facility] [address] [place] [address] Eva Aragon MA Chart Prep 06/04/2024 Patient Outreach [facility] [address] [place] [address] Maria Del Carmen Carpio FNP Pre-visit Planning (SDOH negative, Tobacco screening negative.) 05/26/2024 Orders Only [facility] External Provider, [facility] 04/25/2024 Telephone [facility] [address] [place] [address] Maria Del Carmen Carpio FNP Results from Last 3 Months Family History Medical History Relation Name Comments Fibromyalgia Mother Hypertension Mother Asthma Mother's Sister Fibromyalgia Mother's Sister Uterine cancer Mother's Sister Relation Name Status Comments Mother Mother's Sister Social History Tobacco Use Types Packs/Day Years [...] not to disclose 2021 10:40 AM EDT Last Filed Vital Signs Vital Sign Reading [...] Mass Index 29.64 06/11/2024 1:29 PM EST Plan of Treatment Health Maintenance Due Date Last Done Comments Lipid Panel 1981 Alcohol/Substance Use Screening 1993 Family Planning (PISQ) 1996 Hepatitis C Screening 07/29/1999 DTaP/Tdap/Td Vaccines (1 - Tdap) 2000 Hepatitis B Vaccines (1 of 3 - 19+ 3-dose series) 2000 Pneumococcal Vaccine: Pediatrics (0 to 5 Years) and At-Risk Patients (6 to 49) Years) (1 of 2 - PCV) 2000 COVID-19 Vaccine (2023-2 5 season) 2024 Influenza Vaccine (#1) 2024 Mammogram 06/06/2025 06/06/2024, 06/01/2023 Depression Screening 06/11/2025 06/11/2024, 06/11/2024 SDOH Screening 06/11/2025 06/11/2024 Tobacco Screening 06/11/2025 06/11/2024 Pap Smear 08/18/2025 08/18/2022 Cervical Cancer Screening 08/19/2027 HPV/Cotest 08/19/2027 08/18/2022 Zoster Vaccines (1 of 2) 07/29/2031 RSV Patients and Patients Aged 60 years or older (1 - 1-dose 75+ series) 2056 HIV Screening Completed 02/22/2022 HIB Vaccines Aged Out No longer eligi ble based on patient's age to complete this topic HPV Vaccines Aged Out No longer eligi ble based on patient's age to complete this topic Hepatitis A Vaccines Aged Out No long er eligible based on patient's age to complete this topic IPV Vaccines Aged Out No longer eligi ble based on patient's age to complete this topic Meningococcal Vaccine Aged Out No radha diane eligible based on patient's age to complete this topic RSV under 20 months Aged Out No longe r eligible based on patient's age to complete this topic Rotavirus Vaccines Aged Out No longer eligible based on patient's age to complete this topic Procedures Procedure Name Priority Date/Time Associated Diagnosis Comments BI MAMMOGRAM SCREENING TOMOSYNTHESIS BILATERAL Routine 06/06/2024 7:33 AM EST XR HAND WRIST RT Routine 05/26/2024 9:38 AM EST IMAGE-GUIDED PAP W/AGE BASED SCR,W/CT/NG/TRICH Routine 08/18/2022 9:54 AM EDT Cervical cancer screening Encntr screen for infections w sexl mode of transmiss HIV 1/2 ANTIGEN/ANTIBODY, FOURTH GENERATION W/RFL Routine 02/22/2022 11:42 AM EDT from Last 3 Months or Most Recently Relevant to Health Maintenance Results * BI Mammogram Screening Tomosynthesis Bilateral (06/06/2024 7:33 AM EST) Anatomical Region Laterality Modality Breast Bilateral Mammography 06/06/2024 7:33 AM EST Narrative 06/15/2024 4:43 PM EST ? [facility] [place] ? [address] ?[place] [address] ? Mammography Report ? Signed ? Patient: Thomas Garcia,Steven ?MR#: ?? [id number] ? : 1980 ?Acct:[id number] ? Age/Sex: 43 / F ?ADM Date: 01/29/25 ? Loc: HO.MAMMO ? Attending Dr: Maria Del Carmen aCrpio SIGNAL SYSTEM TESTING MAINTAINER ? Ordering Physician: Maria Del Carmen Carpio ?Results: 2Benig ?? n Findings ? Date of Service: 06/06/24 ?Follow Up: 1 Year From Orig ?? inal Mammogram ? Procedure(s): MM tomosynthesis screening BI ?? Accession Number(s): [id number] ? cc: Maria Del Carmen Carpio SIGNAL SYSTEM TESTING MAINTAINER ? EXAMINATION: ?? MM SCREENING DIGITAL BREAST TOMOSYNTHESIS, BILATERAL ? CLINICAL INFORMATION: ? Screening. Asymptomatic. ? COMPARISON: ?? Mammography: Comparison is made with available priors ? TECHNIQUE: ?? Digital breast mammography with tomosynthesis is performed in both the ?? craniocaudal and mediolateral oblique views along with computer-aided ?? detection (CAD). ? FINDINGS: ?? The breasts are heterogeneously dense, which may obscure small masses ?? (ACR BI-RADS breast composition Category c). ?? Bilateral reduction mammoplasty. Bilateral scattered asymmetries are ?? stable. ?? There are no significant masses, abnormal calcifications, or other ?? abnormalities. ? MM/MM tomosynthesis screening BI ?? IMPRESSION: ?? No mammographic evidence of malignancy. ? ASSESSMENT: ? BI-RADS BI-RADS 2 - Benign Findings ? RECOMMENDATION: ?? Routine annual mammography screening. ? 1 year F/U ? This examination should not preclude the clinical evaluation of a ?? suspicious palpable abnormality. ? This patient's information was entered into a reminder system with a ?? target due date for their next mammogram. ? Electronically signed by: ??Destiny Carolina DO ??06/15/2024 04:40 PM EST ?? RP ? Dictated By: ?Destiny Carolina DO ? Signed By: ?<Electronically signed by Destiny Carolina, DO in OV> ? 06/15/24 1640 ? DD/ 0733 ? TD/TT: 06/06/24 0746 ? Roustabout: ? Procedure Note Donotuseinterpreter, Image - 06/15/2024 [place] [facility] [address] [place], [place] [address] Mammography Report Signed Patient: Steven GarsiaMR#: [id number] : 1980Acct:[id number] Age/Sex: 43 / FADM Date: 06/06/24 Loc: HO.MAMMO Attending Dr: Maria Del Carmen Carpio SIGNAL SYSTEM TESTING MAINTAINER Ordering Physician: Maria Del Carmen Carpio FNPResults: 2Benig n Findings Date of Service: 06/06/24Follow Up: 1 Year From Orig ina Mammogram Procedure(s): MM tomosynthesis screening BI Accession Number(s): [id number] cc: Maria Del Carmen Carpio EXAMINATION: MM SCREENING DIGITAL BREAST TOMOSYNTHESIS, BILATERAL CLINICAL INFORMATION: Screening. Asymptomatic. COMPARISON: Mammography: Comparison is made with available priors TECHNIQUE: Digital breast mammography with tomosynthesis is performed in both the craniocaudal and mediolateral oblique views along with computer-aided detection (CAD). FINDINGS: The breasts are heterogeneously dense, which may obscure small masses (ACR BI-RADS breast composition Category c). Bilateral reduction mammoplasty. Bilateral scattered asymmetries are stable. There are no significant masses, abnormal calcifications, or other abnormalities. MM/MM tomosynthesis screening BI IMPRESSION: No mammographic evidence of malignancy. ASSESSMENT: BI-RADS BI-RADS 2 - Benign Findings RECOMMENDATION: Routine annual mammography screening. 1 year F/U This examination should not preclude the clinical evaluation of a suspicious palpable abnormality. This patient's information was entered into a reminder system with a target due date for their next mammogram. Electronically signed by: Destiny Carolina DO 06/15/2024 04:40 PM EST RP Dictated By: Destiny Carolina DO Signed By: <Electronically signed by Destiny Carolina DO in OV> 06/15/24 1640 DD/ 0733 TD/TT: 06/06/24 0746 Roustabout: us Maria Del Carmen Carpio SIGNAL SYSTEM TESTING MAINTAINER IMG BI PROCEDURES Final Result * XR HAND WRIST RT (05/26/2024 9:38 AM EST) Anatomical Region Laterality Modality Abdomen Radiographic Anna ging 05/26/2024 9:38 AM EST Narrative 05/26/2024 9:40 AM EST ? [facility] ?[address] ? [place] [address] ?XRay Report ? Signed ? Patient: Steven Garsia ?MR#: ?? [id number] ? : 1980 ?Acct:[id number] ? Age/Sex: 43 / F ?ADM Date: 05/26/24 ? Loc: HO.HMGCX ? Attending Dr: Latrice Castano PA-C ? Ordering Physician: Latrice Castano PA-C ?? Date of Service: 05/26/24 ?? Procedure(s): XR hand wrist RT ?? Accession Number(s): [id number] ? cc: Latrice Castano PA-C; Maria Del Carmen Carpio ? CLINICAL HISTORY: M25.531 - Pain in right wrist ? Exam: AP, lateral, and oblique views of the right hand. ? Comparison: None. ? Findings: ? Bony alignment is anatomic. ?? No acute fracture. ?? Joint spaces are well preserved. ?? No erosions. ? Impression: ? Negative right hand radiographs. ? This document has been electronically signed by: Reece Melissa MD on ?? 05/26/2024 09:38:00 ? Dictated By: ?Reece Melissa MD ? Signed By: ?<Electronically signed by Reece Melissa MD in OV> ? 05/26/24 0939 ? DD/ 0938 ? TD/TT: 05/26/24 0938 ? Roustabout: ? Procedure Note Donotuseinterpreter, Image - 05/26/2024 [facility] [address] [place] [address] [place] [address] XRay Report Signed Patient: Steven GarsiaMR#: [id number] : 1980Acct:[id number] Age/Sex: 43 / FADM Date: 05/26/24 Loc: HO.HMGCX Attending Dr: Latrice Castano PA-C Ordering Physician: Latrice Castano PA-C Date of Service: 05/26/24 Procedure(s): XR hand wrist RT Accession Number(s): [id number] cc: Latrice Castano PA-C; Maria Del Carmen Carpio CLINICAL HISTORY: M25.531 - Pain in right wrist Exam: AP, lateral, and oblique views of the right hand. Comparison: None. Findings: Bony alignment is anatomic. No acute fracture. Joint spaces are well preserved. No erosions. Impression: Negative right hand radiographs. This document has been electronically signed by: Reece Melissa MD on 05/26/2024 09:38:00 Dictated By: Reece Melissa MD Signed By: <Electronically signed by Reece Melissa MD in OV> 05/26/2439 DD/ 7 TD/TT: 05/26/24937 Roustabout: [facility] External Provider IMG XR PROCEDURES Final Result * Image-Guided Pap with Age-Based Screening??with CT/NG,??Trichomonas (08/18/2022 9:54 AM EDT) Comment [facility] Comment: This order for age-based cervical cancer and STI screening follows ACOG guidelines(PB 168, 140, HKG993). See individual assays for performing site location. Clinical Information: ABN BLEEDING [facility] LMP: NONE GIVEN [facility] Prev. PAP: NONE GIVEN [facility] Prev. BX: NONE GIVEN [facility] SOURCE: None given [facility] Statement Of Adequacy: [facility] Comment: Satisfactory for evaluation. Endocervical/transformation zone component absent. Interpretation/Re sult: Negative for intraepithelial lesion or malignancy. [facility] Infection Shift in vaginal dayana suggestive of bacterial vaginosis. [facility] COMMENT: This Pap test has been evaluated with computer assisted technology. [facility] [employer] [facility] Polish Compounder: [facility] [employer] [facility] Comment: PEH, CT(ASCP) CT screening location: [place] [address] Slide preparation performed at: [facility], [address] [place] [address] CLIA No. ??[id number] Review Polish Compounder: [facility] [employer] [facility] Comment: BGG, SCT(ASCP) CT screening location: [place] [address] Slide preparation performed at: [facility], [address] [place] [address] CLIA No. ??[id number] (Always Message) [facility] Comment: EXPLANATORY NOTE: The Pap is a screening test for cervical cancer. It is not a diagnostic test and is subject to false negative and false positive results. It is most reliable when a satisfactory sample, regularly obtained, is submitted with relevant clinical findings and history, and when the Pap result is evaluated along with historic and current clinical information. HPV nRNA E6/E7 Not Detected Not Detected [facility] Comment: Methodology: [employer]orer [employer] Processing-Mediated Amplification This assay detects E6/E7 viral messenger RNA (mRNA) from 14 high-risk HPV types (16,18,31,33,35,39,45,51,52,56,58,59,66,68). Cervical sources are required for HPV testing. If a vaginal source from a patient who has had a total hysterectomy with removal of cervix was submitted, please contact the testing laboratory for alternative testing options. For additional information, please refer to http://education.Bizimply/faq/XLG289q9 (This link if provided for information/ educational purposes only.) Chlamydia trachomatis RNA, TMA, Urogenital NOT DETECTED NOT DETECTED [facility] Neisseria gonorrhoeae RNA, TMA, Urogenital NOT DETECTED NOT DETECTED [facility] (Always Message) [employer] [facility] Comment: The analytical performance characteristics of this assay, when used to test SurePath(TM) specimens have been determined by [facility]. The modifications have not been cleared or approved by the FDA. This assay has been validated pursuant to the CLIA regulations and is used for clinical purposes. For additional information, please refer to https://[employer].Bizimply/faq/WYL317 (This link is being provided for information/ educational purposes only.) Trichomonas vaginalis, QL, TMA, PAP Vial NOT DETECTED NOT DETECTED [facility] Comment: The analytical performance characteristics of this assay have been determined by [facility]. The modifications have not been cleared or approved by the FDA. This assay has been validated pursuant to the CLIA regulations and is used for clinical purposes. For additional information, please refer to http://[employer].Bizimply/ faq/Trichomonastma (This link is being provided for information/ educational purposes only.) Cytology specimen container (physical object) 08/18/2022 9:54 AM EDT 08/19/2022 2:08 AM EDT Amparo Barker [facility] CYTOLOGY ORDERABLES F inal Result [facility] [address], [place] [address] [facility] [address], [address] [place] [address] [facility] [address] [place] [address] * HIV 1/2 ANTIGEN/ANTIBODY,FOURTH GENERATION W/RFL (02/22/2022 11:42 AM EDT) HIV-1/2 ANTIGEN AND ANTIBODIES, 4TH GENERATION W/ REFLEX NON-REACT NATASHA NON-REACT NATASHA CONVERTED LEGACY LABS Comment: HIV-1 antigen and HIV-1/HIV-2 antibodies were not detected. There is no laboratory evidence of HIV infection. ?? PLEASE NOTE: This information has been disclosed to you from records whose confidentiality may be protected by state law. ??If your state requires such protection, then the state law prohibits you from making any further disclosure of the information without the specific written consent of the person to whom it pertains, or as otherwise permitted by law. A general authorization for the release of medical or other information is NOT sufficient for this purpose. ? For additional information please refer to http://[employer].Bizimply/faq/PHB027 (This link is being provided for informational/ educational purposes only.) ? The performance of this assay has not been clinically validated in patients less than 2 years old. ?? 02/22/2022 11:4 2 AM EDT MariaD el Carmen Ragland SIGNAL SYSTEM TESTING MAINTAINER LAB BLOOD ORDERABLES Final Res ult CONVERTED LEGACY LABS from Last 3 Months or Most Recently Relevant to Health Maintenance Insurance PPO Care Teams Environmental Health Inspector Relationship Specialty Start Date End Date Maria Del Carmen Carpio FNP [address] [place] [address] PCP - General Family Medicine 04/08/22 Parul Killian MD [address] [place] [address] [place] [address] Neurology 06/11/24
--- OUTSIDE RECORDS SUMMARY | 2024-07-03 17:38 | XMS_ITS | Encounter Summary ---
Author Organization [employer] Address [address] [place] [address] 7 [place] [address] Care Team Providers Care Buckle And Button Maker Name Role Phone Maria Del Carmen Carpio Primary Care Provider [phone] Parul Killian MD Unavailable [phone] Reason for Visit * Reason Comments Care Coordination CHW outreach for SDO H PT-1 and food needs- LVM Encounter Details Date Type Department Care Team (Latest Contact Info) Description 06/11/2024 Patient Outreach [facility] MED & PEDS [address] [place] [address] Maria Del Carmen Carpio FNP [address] [place] [address] Care Coordination (CHW outreach for SDOH PT-1 and food needs- LVM ) Social History Tobacco Use Types Packs/Day Years [...] as of this encounter Progress Notes * Norman Jones - 06/11/2024 1:51 PM EST CHW Norman Jones, placed outbound call to patient for assistance with SDOH as a referral was placed by the provider. Patient had screened positive for the following SDOH insecurities. No answer atthis time. Patient's name and were not confirmed. CHW left detailed message and provided contact information requesting return call for assistance. Patient educated on extended clinic hours on Mondays through Wednesdays, and Walk-In Urgent Care Located in [facility]. Patient provided with after-hours line for [facility], , which offer night time triage service and option to transfer toon call provider if needed. documented in this encounter Plan of Treatment Not on file documented as of this encounter Visit Diagnoses Not on filedocumented in this encounter Additional Health Concerns Assessment Noted Time PHQ-9 Depression Total Score: 6 06/11/19 25 2:35 PM EST documented as of this encounter Care Teams Buckle And Button Maker Relationship Specialty Start Date End Date Maria Del Carmen Carpio FNP [address] [place] [address] [place] [address] PCP - General Family Medicine 04/08/22 Parul Killian MD [address] [place] [address] [place] [address] Neurology 06/11/24 documented as of this encounter
--- OUTSIDE RECORDS SUMMARY | 2024-07-03 17:38 | XMS_ITS ---
Author Organization [facility] sukhjinder Smith Address [address] [facility] [place] [address] Care Team Providers Care Digital Measurement Advisor Name Role Phone Maria Del Carmen Carpio Primary Care Provider Monica Menon Unavailable [phone] Allergies Allergen (clinical drug ingredient) Drug/Non Drug Allergy documented on EMR Reaction Allergy Type Onset Date Status Substance with sulfonamide structure and antibacterial mechanism of action (substance) Sulfa Antibiotics hives Drug Allergy Active REASON FOR VISIT pcp-04/30, Fungal Nails, Ingrown Nail Medications Medication SIG (Take, Route, Fr equency, [...] 1 capsule Orally Once a day Active Ciclopirox 0.77 % 1 application Biology Internship ally Twice a day for 365 days Active Nabumetone 500 MG 1 tablet Orally Twice a day Active hydrOXYzine HCl 10 MG 1 tablet as needed Orally Once a day Active Social History Tobacco Use: [...] Are you an other tobacco user? No Vital Signs Height 4 ft 11 in in 06/03/2023 Weight 132 lbs 06/03/2023 BMI 26.66 kg/m2 06/03/2023 Encounters Encounter Location Date Provider Diagnosis [facility] [address] [place] [address] 06/03/2023 Monica Morgan Fungal infection of nail B35.1 and Ingrown nail L60.0 Assessments Encounter Date Diagnosis (ICD Code) Assessment Notes Treatment Notes Treatment Clinical Notes Section Notes 06/03/2023 Fungal infection of nail (ICD-10 - B35.1) 06/03/2023 Ingrown nail (ICD-10 - L60.0) Plan Of Treatment Medication Medication Name Sig Start Date Stop Date Notes Ciclopirox 0.77 % 1 application Biology Internship ally Twice a day for 365 days Next Appt Details Follow Up: prn, Reason: Procedure Notes * Category Sub-Category Detail Notes Nail Avulsion Procedure A fine sterile e levator was placed between the eponychium, nail fold, and nail plate to separate the structures. A sterile nail splitter, and/or sterile 316 blade, was then used to longitudinally section the nail along its entire length through the eponychium to the area under the nail fold. The offending portion of nail was from the nail bed with a rolling action and then removed with a hemostat. No underlying bone was identified. There was minimal bleeding as hemostasis was achieved through the temporary use of either a digital tourniquet or the aforementioned local with epinephrine. A bacitracin sterile dressing was applied. Local wound aftercare instructions were discussed and dispensed. The patient was informed of both conservative and future surgical procedures to prevent recurrence. Tylenol or Motrin was recommended for pain or discomfort (02678) Anesthesia 3cc of 1 percent Lid ocaine Plain local anesthesic utilizing aseptic technique Location Bilateral nail borde r , T5 Progress Notes * Steven GUZMANDOB:[birth year] (42 yo F)Acc No.[id number]:06/03/2023 Progress Notes Patient:?[place], Sugeilen Provider:?Monica Morgan DPM :1980???Age:42 Y???Sex:Female D ate:06/03/2023 Address:[address], [place], [place] Pcp:Maria Del Carmen Carpio Subjective: * Chief Complaints: * ???Pcp-04/30Fungal NailsIngr own Nail * HPI: ???Painful Nails:?Nature:?aching, tender, discolored, thick.?Course:?worse.?Aggrevated by:?shoegear causing difficulty standing/walking.?Treatments:?none.? * ROS:?General/Constitutional:?Nausea?admits.?Vomiting?denies.?Hunger Thirst?denies.?Loss appetite?admits.?Chills?denies.?Fatigue?admits.?Fever?denies.?Night Sweats?admits.?Unexplained weight loss?denies.?Unexplained weight gain?denies.?HEENTM:?Dentures?denies.?Dizziness?denies.?Glasses/contacts?admits.?Retinopathy?de nies.?Blurred/double vision?denies.?TMJ?denies.?Discharge/drainage?denies.?Implants?denies.?Sore throat?denies.?Dental implants?admits.?Hard of hearing ?denies.?Difficulty chewing/swallowing/speaking?denies.?Nose bleeds?admits.?Sore mouth?denies.?Respiratory:?On Oxygen?denies.?Pneumonia/pleurisy?denies.?Bronchitis?denies.?Emphysema?denies.?C oughing?denies.?Cough blood?denies.?Shortness of breath?denies.?Wheezing?denies.?Cardiovascular:?Pacemaker?denies.?MVP?denies.?WPW?denies.?CHF?denies.?Heart attack?denies.?Septal defect?denies.?Rapid beat?denies.?Chest pain ?denies.?Atrial Fib.?denies.?Murmur/Palpitations?denies.?Gastrointestinal:?Hemorrhoids?denies.?Stomach/Abdominal pain?denies.?Dark blood stool?denies.?Irritable bowel ?denies.?Constipation?denies.?Diarrhea?denies.?Hematology:?Swelling?denies.?Clots?denies.?Varicose Veins?denies.?Bruising?denies.?Bleeding problem?denies.?Genitourinary:?Blood urine?denies.?Frequent/Painfu/urination/bladder control?denies.?Kidney stones?denies.?Infection (UTI)?denies.?Nephropathy?denies.?sex trans dis (STD)?denies.?Prostate?denies.?Musculoskeletal:?Hammertoes?denies.?Bunions?admits.?Back Pain?admits.?Muscle Cramps/ Resting?denies.?Muscle cramps / walking?denies.?Generalized aches and pains?admits.?Weakness?denies.?Integ.:?Naranjo?denies.?Scars?denies.?Corns/calluses?denies.?Ingrown nails?admits.?Painful nails?admits.?Open Sores?denies.?Rashes?denies.?Neurologic:?Difficulty sleeping?admits.?Brain disorder?denies.?Numbness?admits.?Balance trouble?denies.?Confusion?denies.?Fainting/blackouts?denies.?Tingling?admits.?Tr emors?denies.? * Medical History:? * Surgical History:?breast red uction 2018 * Hospitalization/Major Diagno stic Procedure:?Denies Past Hospitalization * Family History:?Mother: ivan yan, foot problems, diagnosed with Family history of arthritis, Unspecified essential hypertension.?Father: alive.?Maternal aunt: diagnosed with Other malignant neoplasm of unspecified site.? * Social History:?Tobacco Use:?Tobacco Use/Smoking?Are you a:?current smoker ?How often do you smoke cigarettes??every day ?How many cigarettes a day do you smoke??6-10 ?How soon after you wake up do you smoke your first cigarette??within 5 minutes ?Tobacco use other than smoking?Are you an other tobacco user??No ???Drugs/Alcohol:?Drugs?Have you used drugs other than those for medical reasons in the past 12 months??Yes ?Marijuana??Yes Daily ?Alcohol Screen?Did you have a drink containing alcohol in the past year??Yes ?How often did you have a drink containing alcohol in the past year??Monthly or less (1 point) ?Points?1 ?Interpretation?Negative ???Miscellaneous:?Caffeine: yes, frequency:, 2-3 cups per day. ?Children: yes, 2. ?Exercise: yes, walking. ?Marital status: . 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 * Medications:?TakingGabapenti n 300 MG Capsule 1 capsule Orally Once a dayNabumetone 500 MG Tablet 1 tablet Orally Twice a dayhydrOXYzine HCl 10 MG Tablet 1 tablet as needed Orally Once a daySUMAtriptan 10 MG/ACT Solution 1 puff at onset of headache may repeat dose after 1 hour up to 3 doses per day as needed Nasally Once a daySertraline HCl 50 MG Tablet 1 tablet Orally Once a dayMedication List reviewed and reconciled with the patientTaking Gabapentin 300 MG Capsule 1 capsule Orally Once a dayTaking Nabumetone 500 MG Tablet 1 tablet Orally Twice a dayTaking hydrOXYzine HCl 10 MG Tablet 1 tablet as needed Orally Once a dayTaking SUMAtriptan 10 MG/ACT Solution 1 puff at onset of headache may repeat dose after 1 hour up to 3 doses per day as needed Nasally Once a dayTaking Sertraline HCl 50 MG Tablet 1 tablet Orally Once a dayMedication List reviewed and reconciled with the patient * Allergies:?Sulfa Antibiotics : hivesyes[Allergies Verified] Objective: * Vitals:?Ht: 4 ft 11 in, Wt: 132, BMI:26.66, Shoe size:4-5. * Examination: ???Nails: ?NAILS are:?Elongated, overgrown, dystrophic, lytic, greater than 3mm thick, discolored and friable with crumbly malodorous subungual debris, with pain on palpation , 1-5 B/L.?General Examination: ?GENERAL APPEARANCE:?Reveals a pleasant, alert, well-nourished, well- developed, well hydrated individual, who demonstrates proper attention to hygiene/body habitus, and is in no acute distress, Pt serves as own?historian for office visit today.?ORIENTED:?person, place, and time.?Neurological: ?SENSORY:?Neurological exam reveals intact sensorium, pain sensation normal, vibration sensation intact, pinprick sensation is normal in the lower extremities, Pt denies, anesthesia, burning, paresthesia, tingling, B/L.?DEEP TENDON REFLEXES:?Achilles, 2/4, B/L.?Vascular: ?DP PULSES:?3/4, B/L.?PT PULSES:?3/4, B/L.?CAPILLARY FILL TIME:?immediate, all digits, B/L.?SKIN TEMPERTURE GRADIENT OF THE LOWER EXTERMITIES:?warm to cool, proximal to distal, B/L.?HAIR GROWTH/TEXTURE/ELASTICITY/TURGOR:?normal, B/L.?PIGMENTATION:?normal, B/L.?EDEMA:?absent, B/L.?Dermatologic: ?SKIN FINDINGS:?Skin exam reveals normal texture, elasticity, and turgor. There are no masses. The interspaces are clear.?Orthopedic: ?MUSCLE STRENGTH:?5/5 all groups in a symmetrical fashion , B/L.?Ingrown Nail: ?INSPECTION:?Reveals nail incurvation, pain on palpation, groove hypertrophy , Bilateral nail borders , T5.? Assessment: * Assessment: 1.?Ingrown nail - L60.0?2.?F ungal infection of nail - B35.1 (Primary), Dx New problem, Prognosis Uncertain (4)? Plan: * Treatment: * Procedures:?Nail Avulsion:?Location?Bilateral nail border , T5.?Anesthesia?3cc of 1 percent Lidocaine Plain local anesthesic utilizing aseptic technique.?Procedure?A fine sterile elevator was placed between the eponychium, nail fold, and nail plate to separate the structures. A sterile nail splitter, and/or sterile 316 blade, was then used to longitudinally section the nail along its entire length through the eponychium to the area under the nail fold. The offending portion of nail was from the nail bed with a rolling action and then removed with a hemostat. No underlying bone was identified. There was minimal bleeding as hemostasis was achieved through the temporary use of either a digital tourniquet or the aforementioned local with epinephrine. A bacitracin sterile dressing was applied. Local wound aftercare instructions were discussed and dispensed. The patient was informed of both conservative and future surgical procedures to prevent recurrence. Tylenol or Motrin was recommended for pain or discomfort (27088).? * Procedure Codes:?54825 Avuls ion Plate, Modifiers: XS * Preventive Medicine:? ??Counseling:?Discussion:?-04: Office or other outpatient visit for the evaluation and management of a new patient, which required a medically appropriate history and/or examination and MODERATE level of DECISION MAKING for: 1 OR MORE CHRONIC PROBLEM(S) THATS WORSENING, 2 STABLE CHRONIC PROBLEMS, A NEWLY DIAGNOSED PROBLEM WITH UNCERTAIN PROGNOSIS, AN ACUTE COMPLICATED INJURY WITH MULTIPLE TREATMENT OPTIONS, OR AN ACUTE PROBLEM WITH ACCOMPANYING SYSTEMIC SYMPTOMS, THAT POSE(S) A MODERATE RISK OF MORBIDITY. THIS CONDITION MAY ALSO INCLUDE RX DRUG MANAGEMENT, OR A DECISON FOR MINOR SURGERY. The visit on the day of the encounter encompassed interpreting the data and educating the patient as to the nature of their condition, treatment options available according to their individual PMH, meds, allergies, and overall health/living conditions, as well as any potential risks or complications that may occur from a failure to adhere to, and participate in, the recommended course of therapy. The discussion included a complete verbal, and/or written explanation of the examination results, any x-rays taken, the proposed diagnosis, and outline of the treatment plan. A schedule for future care needs was also explained. The patient verbalized an understanding of the instructions at this time and agreed to be an active participant in their treatment. If the patient should think of any questions or concerns after the visit, I have encouraged the patient to call the office.?Abscess/Paraonychia/Ingrown Nails:?We discussed the possible etiologies (genetic, improper nail care, shoe gear, nail trauma) which may lead to ingrown nails and/or paronychial infections. We discussed and reviewed palliative/nonsurgical/deferring definitive treatment (vs) undergoing the treatment procedures of nail avulsion(s) or PNA, which may prevent recurrence and give more lasting results. The possible risks/complications such as worsened condition/delayed healing/nonhealing/failure/recurrence/infection, the potential benefits/advantages of decreased pain/deformity, as well as alterative treatment options including applying nail softening agents/nail groove packing were discussed. No guarantees were given regarding any outcome for any procedure. The patient was educated in the length of time for the affected nail to regrow once completely healed from a nail avulsion procedure. Once the condition has completely healed, the patient was consulted on proper nail care. Patient questions such as details of each procedure, varying time to heal, activity post procedure, and shoe gear were discussed and the answers were verbally confirmed fully understood, Pt will consider PNA if nail cont to regrow ingrown.?Fungal Nail Counseling:?The patient was counseled on the diagnosis, potential etiologies (including, but not limited to, environmental factors, genetic, immune deficiency), and the multiple treatment options for Onychomycosis. We discussed the risks and benefits of each option from performing no treatment, to ultraviolet light shoe treatment, to laser nail treatment, to applying topical antifungals, to taking oral antifungal medication, to surgical removal of the involved nail(s) with or without performing a matricectomy, or any combination thereof. We discussed the advantages and disadvantages of each of possible treatment and importance for adherence to all the recommended therapies for optimum success. This includes the necessity for weekly emery board self nail home debridements, and control the nail and skin environment as much as possible by only using a fresh, dry pair of shoes/socks each day, as well as keeping the skin as dry as possible through the use of sprays/powders if necessary. The patient was instructed to discard the emery board after use to prevent reinfection of the involved nail(s). We discussed the mycological and visual clinical effectiveness of topical vs oral antifungal treatments as well as each ones potential side effects and/or any patient- specific medication interactions. We discussed the reasons behind the important requirement of regular liver function testing with oral antifungal therapy for safety. Patient questions regarding use, dosage, successful outcomes, blood tests, and possible pharmaceutical interactions were reviewed and the patient verbalized that all answers were clearly understood, The Pt prefers topical treatment.? * Follow Up:?prn * Images: * Sign off status: Completed true * Provider:?Monica Morgan DPM Date:? Generated for Ritu abreu/Slava/Dieudonne on:?07/03/2024 05:38 PM EST History and Physical Notes * HPI (History of Present Illness) Category Sub-Category Detail Notes Category Not es Painful Nails Aggravated by: shoegear causing difficulty standing/walking Course: worse Nature: aching, tender, disc olored, thick Treatments: none Examination Category Sub-Category Detail Notes Category Not es Ingrown Nail INSPECTION: Reveals nail inc urvation, pain on palpation, groove hypertrophy , Bilateral nail borders , T5 Neurological SENSORY: Neurological exa m reveals intact sensorium, pain sensation normal, vibration sensation intact, pinprick sensation is normal in the lower extremities, Pt denies, anesthesia, burning, paresthesia, tingling, B/L DEEP TENDON REFLEXES: Achilles, 2/4, B/L Dermatologic SKIN FINDINGS: Skin exam reveal s normal texture, elasticity, and turgor. There are no masses. The interspaces are clear Orthopedic MUSCLE STRENGTH: 5/5 all groups in a symm etrical fashion , B/L General Examination GENERAL APPEARANCE: Reveals a pleasant, alert, well- nourished, well-developed, well hydrated individual, who demonstrates proper attention to hygiene/body habitus, and is in no acute distress, Pt serves as own historian for office visit today ORIENTED: person, place, and t torie Vascular DP PULSES (B): 3/4, B/L PT PULSES (B): 3/4, B/L CAPILLARY FILL TIME: immediate, all digi ts, B/L TEMPERTURE GRADIENT (C): warm to cool, p roximal to distal, B/L TROPHIC CONDITION-TEXTURE/ELASTICITY/TURGOR/HAIR GROWTH (B): normal, B/L EDEMA (C): absent, B/L PIGMENTATION: normal, B/L Nails NAILS are: Elongated, overg rown, dystrophic, lytic, greater than 3mm thick, discolored and friable with crumbly malodorous subungual debris, with pain on palpation , 1-5 B/L
--- OUTSIDE RECORDS SUMMARY | 2024-07-03 17:38 | XMS_ITS | Encounter Summary ---
Author Organization [employer] [facility] Address [address] [place] [address] Care Team Providers Care Conventional Mortgage Underwriter Name Role Phone Maria Del Carmen Carpio WELFARE ELIGIBILITY WORKER Primary Care Provider [phone] Reason for Visit * Reason Onset Date Comments Chart Prep 06/07/2024 Encounter Details Date Type Department Care Team ([facility] st Contact Info) Description 06/07/2024 Telephone [facility] MEDICINE [address] [place] [address] Eva Aragon MA Chart Prep Social History Tobacco Use Types Packs/Day Years [...] encounter Miscellaneous Notes * Telephone Encounter - Eva Kendall MA - 06/07/2024 5:02 PM EST Chart Prep Labs: done Images: done Vaccines due: yes Referrals: Referrals note; Patient with no active insurance. Unable to process referral. Screenings: Lipid Panel , Hep C Overdue care gaps: n/a documented in this encounter Plan of Treatment Not on file documented as of this encounter Visit Diagnoses Not on filedocumented in this encounter Care Teams Conventional Mortgage Underwriter Relationship Specialty Start Date End Date Maria Del Carmen Carpio FNP [address] [place] [address] PCP - General Family Medicine 04/08/22 documented as of this encounter
== END 2024-07-03 15:01 | disposition home or self-care (01) ==
PROVIDERS: PCP Registered Nurse
DX: G56.03 Carpal tunnel syndrome, bilateral upper limbs (principal); R20.0 Anesthesia of skin; R20.2 Paresthesia of skin
CPT/HCPCS: 99204

== ENCOUNTER → 2024-07-03 14:04 | Outpatient (BNVA) | payer BC, SELFPAY | PROVIDERS: PCP Registered Nurse ==

== ENCOUNTER 2024-07-16 06:01 | Outpatient (REF) | payer BC, SELFPAY ==
[2024-07-16 10:32] LABS: MANUAL DIFF FLAG NO
[2024-07-16 10:33] LABS: Basophils Percent Auto 0.3 % (0-2); Eosinophils Absolute Auto 0.2 X10*3/uL (0.0-0.4); Eosinophils Percent Auto 3.2 % (0-4); Hematocrit 40.8 % (37.0-47.0); Hemoglobin 13.7 g/dl (12.0-16.0); Imm Gran Abs Auto 0.01 X10*3/uL (0.00-0.03); Imm Gran Pct Auto 0.1 % (0.0-0.4); Lymphocytes Absolute Auto 2.9 X10*3/uL (1.2-4.9); Lymphocytes Percent Auto 42.1 % (20-40); Mean Corpuscular HGB Conc 33.6 g/dl (31.0-35.0); Mean Corpuscular Hemoglobin 31.6 pg (27.0-33.0); Mean Platelet Volume 11.3 fL (9.4-12.3); Monocytes Absolute Auto 0.7 X10*3/uL (0.1-1.2); Monocytes Percent Auto 9.6 % (2-11); Neutrophils Absolute Auto 3.1 x10*3/uL (2.0-8.3); Neutrophils Percent Auto 44.7 % (45-73); Platelet Count 178 X10*3/uL (160-400); Red Blood Count 4.34 X10*6/uL (4.20-5.50); Red Cell Distribution Width 13.2 % (11.0-16.0); White Blood Count 6.9 X10*3/uL (4.8-10.8)
[2024-07-16 10:51] LABS: Estimated Average Glucose 103 mg/dL; Hemoglobin A1c % 5.2 % (<6.0); Total Hemoglobin (HGBA1C) 3523.6361 umol/L
[2024-07-16 11:08] LABS: Alanine Aminotransferase 18 U/L (0-31); Albumin Level 3.9 g/dL (3.5-5.0); Alkaline Phosphatase 68 U/L (39-117); Anion Gap 8 (12-20); Aspartate Amino Transferase 18 U/L (5-31); Bilirubin Total 0.2 mg/dL (0.0-1.0); Blood Urea Nitrogen 10 mg/dL (9-16); Calcium 8.8 mg/dL (8.4-10.2); Carbon Dioxide 21 mmol/L (22-29); Chloride 112 mmol/L (96-108); Cholesterol 185 mg/dL (<200); Estimated Glomerular Filt Rate > 60; Glucose Random 95 mg/dL (60-115); HDL Cholesterol 35 mg/dL (>40); LDL Cholesterol Calculated 113 mg/dL (<100); Potassium 4.1 mmol/L (3.3-5.1); Sodium 137 mmol/L (135-145); Triglycerides 187 mg/dL (<150)
[2024-07-16 11:19] LABS: HBS Num1 0.13 mIU/mL (0-7.99); HBc Num1 0.11 S/CO (0.00-0.79); HBsAGNum1 0.36 S/CO (0.00-0.99); HIV AB/AG Nonreactive (Nonreactive); HIV Num 1 0.05 S/CO (0.00-0.99); Hepatitis B Core Antibody Nonreactive (Nonreactive); Hepatitis B Surface Antigen Negative (Negative); ~Hepatitis B Surface Antibody NONREACTIVE (Nonreactive)
[2024-07-16 11:25] LABS: TSH reflex Free T4 3.93 uIU/mL (0.32-4.0)
[2024-07-16 13:21] LABS: CT PCR NOT DETECTED (Not Detect.); NG PCR NOT DETECTED (Not Detect.)
[2024-07-17 09:58] LABS: RPR Rapid Plasma Reagin NON-REACTIVE (NON-REACTIVE)
[2024-07-18 14:09] LABS: HCV Log PCR <1.18 NOT DETECTED Log IU/mL (NOT DETECTED); HepC Viral Load <15 NOT DETECTED IU/mL (NOT DETECTED)
== END 2024-07-16 06:02 | disposition home or self-care (01) ==
LOC: HO.HMGCLDS 06:01
PROVIDERS: PCP Registered Nurse; Visit Provider Registered Nurse
DX: Z00.00 Encounter for general adult medical examination without abnormal findings (principal); Z13.1 Encounter for screening for diabetes mellitus; Z13.6 Encounter for screening for cardiovascular disorders
CPT/HCPCS: 80053; 80061; 83036; 84443; 85025; 86592; 86704; 86706; 87340; 87389; 87491; 87522; 87591

== ENCOUNTER 2024-07-17 12:08 | Day surgery (SDC) | payer BC, SELFPAY ==
--- OUTSIDE RECORDS SUMMARY | 2024-07-12 07:31 | XMS_ITS | Patient Health Record ---
Author Organization [facility] Address [address] [facility] [place] [address] Care Team Providers Care Gullet Slitter Name Role Phone Maria Del Carmen Carpio Primary Care Provider Monica Menon Unavailable [phone] Allergies Allergen (clinical drug ingredient) Drug/Non Drug [...] day Active Ciclopirox 0.77 % 1 application Brush Holder Inspector ally Twice a day for 365 days [...] Insured Coverage Start Date Coverage End Date [facility] All Others [id number] [place] [address] [id number] Stephen Richardson Spouse - patient is the spouse of the insured Medical (General) History Medical History History ICD Code Anxiety Fibromyalgia Headaches/Migraines Surgical History Surgery Date(Month/Year) breast reduction 2017
--- OUTSIDE RECORDS SUMMARY | 2024-07-12 07:31 | XMS_ITS | Encounter Summary ---
Author Organization [employer] [facility] Address [address] [place] [address] [address] [address] Care Team Providers Care Vba Programmer Name Role Phone Maria Del Carmen Carpio Primary Care Provider Parul Killian MD Unavailable [phone] Reason for Visit * Reason Onset Date Comments Reschedule 2023 Encounter Details Date Type Department Care Team ([facility] st Contact Info) Description 2023 Telephone [facility] MEDICINE [address] [place] [address] Maria Del Carmen Carpio FNP [address] [place] [address] Reschedule Social History Tobacco Use Types Packs/Day [...] Miscellaneous Notes * Telephone Encounter - Emma Agarwal - 2023 3:34 PM EDT Tc from pt requesting r/s Procedure appt. documented in this encounter Plan of Treatment Not on file documented as of this encounter Visit Diagnoses Not on filedocumented in this encounter Care Teams Vba Programmer Relationship Specialty Start Date End Date Maria Del Carmen Carpio FNP [address] [facility] [place] [address] PCP - General Family Medicine 04/08/22 Parul Killian MD [address] [place] [address] [place] [address] Neurology 06/11/24 documented as of this encounter
--- OUTSIDE RECORDS SUMMARY | 2024-07-12 07:31 | XMS_ITS | Clinical Summary ---
Author Organization [employer] [facility] Address [address] [place] [address] [address] [place] [address] Care Team Providers Care Shafting Worker Name Role Phone Maria Del Carmen Carpio JONATAN Primary Care Provider [phone] Parul Killian MD Unavailable Allergies Active Allergy Reactions Criticality Noted Date Comments Orphenadrine 02/22/2022 Sulfa Antibiotics 04/29/2022 Medications gabapentin (Neurontin) 100 MG capsuleIndicati ons:Fibromyalgi a Take 2 capsules (200 mg) by mouth at bedtime. 60 capsule 11 06/11/2024 06/11/19 26 Active dorzolamide (Trusopt) 2 % ophthalmic solution INSTILL 1 DROP IN LEFT EYE THREE TIMES DAILY 04/13/2024 Active hydrOXYzine HCl (Atarax) 10 MG tablet TAKE 1-2 TABLETS BY MOUTH EVERY NIGHT AT BEDTIME NEEDED FOR SLEEP 02/29/2024 Active naproxen (Naprosyn) 500 MG tablet Take 1 tablet by mouth if needed in the morning and at bedtime for pain. 05/23/2024 Active propranolol (Inderal) 10 MG tablet TAKE 1 TABLET BY MOUTH TWICE DAILY NEEDED. TOME 1 NA PASTILLA HASTA DOS VECES AL DEEJAY ALESIA INDICADO NECESITA 12/27/2023 Active sertraline (Zoloft) 100 MG tablet Take 1 tablet by mouth Once per day. 12/28/2023 Active Active Problems Problem Noted Date Diagnosed Date Bilateral carpal tunnel syndrome 06/11/2024 Overview (06/11/2024): EMG completed 05/26/23: demonstrated moderately severe right and mild to moderate left median neuropathy across carpal tunnel. Mild bilateral ulnar neuropathy across cubital tunnel. Assessment & Plan (06/11/2024 6:36 PM EST): - Continues with wrist splints at night and naproxen PRN - Scheduled for [facility] Ortho visit later this month Cubital tunnel syndrome of both upper extremitie s 06/11/2024 Overview (06/11/2024): EMG completed 05/26/23: Mild bilateral ulnar neuropathy across cubital tunnel. Assessment & Plan (06/11/2024 3:03 PM EST): - Consult Jun 2024 at [facility] Ortho Retinitis pigmentosa 06/11/2024 Overview (06/11/2024): Following with [facility] - Dr. Cherie Tlabot Consult Mar 2024: no known fam hx with blindness or early vision loss. Recommended genetic testing at [facility] Assessment & Plan (06/11/2024 6:30 PM EST): - Continue following with specialist Abnormal uterine bleeding 09/12/2023 Assessment & Plan (06/11/2024 3:06 PM EST): Unremarkable pelvic US Jun 2023 Pap August 2022 NILM, HPV neg Scheduled for EMB at [facility] but did not attend. Then referred to outside ARCHITECT. Reports that she has not had consult, [...] previously ordered, pending -Optometry - referred to [facility] Care 03/26/22 -Colon CA screening: routine [...] establish with therapist and psychiatrist -Continue with [facility] acupuncture clinic -Increase gabapentin to 200mg nightly. [...] Description 06/11/2024 1:15 PM EST Office Visit [facility] [address] [place] [address] Maria Del Carmen Carpio FNP Encounter for routine history and physical examination of adult (Primary Dx); Routine health maintenance; Abnormal uterine bleeding; Fibromyalgia; Bilateral carpal tunnel syndrome; Cubital tunnel syndrome of both upper extremities; Tobacco use; Retinitis pigmentosa 06/11/2024 Patient Outreach [facility] [address] [place] [address] Maria Del Carmen Carpio FNP Care Coordination (CHW outreach for SDOH PT-1 and food needs- LVM ) 06/11/2024 Travel 06/07/2024 Telephone [facility] MEDIC[facility] [address] [place], [place] [id number] Eva Aragon MA Chart Prep 06/04/2024 Patient Outreach [facility] [address] [place] [address] Maria Del Carmen Carpio FNP Pre-visit Planning (SDOH negative, Tobacco screening negative.) 05/26/2024 Orders Only [facility] External Provider, [facility] 04/25/2024 Telephone [facility] [address] [place] [address] Maria Del Carmen Carpio FNP Results from [...] of 2 - PCV) 2000 COVID-19 Vaccine (1 - 2023-2 5 season) 2024 Influenza Vaccine (#1) 2024 [...] EST Narrative 06/15/2024 4:43 PM EST ? [facility] [place] ? [address] ?[place] [address] ? Mammography Report ? Signed ? Patient: Steven Garsia ?MR#: ?? [id number] ? : 1980 ?Acct:[id number] ? Age/Sex: 43 / F ?ADM Date: 06/06/24 ? Loc: HO.MAMMO ? Attending Dr: Maria Del Carmen Carpio FUSION JUNCTURE GRINDER ? Ordering Physician: Maria Del Carmen Carpio FUSION JUNCTURE GRINDER ?Results: 2Benig ?? n Findings ? Date of Service: 06/06/24 ?Follow Up: 1 Year From Orig ?? inal Mammogram ? Procedure(s): MM tomosynthesis screening BI ?? Accession Number(s): [id number] ? cc: Maria Del Carmen Carpio FUSION JUNCTURE GRINDER ? EXAMINATION: ?? MM SCREENING DIGITAL BREAST [...] ??Destiny Carolina DO ??06/15/2024 04:40 PM EST ? Dictated By: ?Destiny Carolina DO ? Signed By: ?<Electronically signed by Destiny Carolina, DO in OV> ? 06/15/24 1640 ? DD/ 0733 ? TD/TT: 06/06/24 0746 ? Java Golden Gate Developer: ? Procedure Note Donzeketer, Image - 06/15/2024 [facility] [address] [place] [address] Mammography Report Signed Patient: Steven GarsiaMR#: [id number] : 1980Acct:[id number] Age/Sex: 43 / FADM Date: 06/06/24 Loc: HO.MAMMO Attending Dr: Maria Del Carmen Carpio FUSION JUNCTURE GRINDER Ordering Physician: Maria Del Carmen CarpioPResults: 2Benig n Findings Date of Service: 06/06/24Follow Up: 1 Year From Orig inal Mammogram Procedure(s): MM tomosynthesis screening BI Accession Number(s): [id number] cc: Phalen,Maria Del Carmen FUSION JUNCTURE GRINDER EXAMINATION: MM SCREENING DIGITAL BREAST TOMOSYNTHESIS, BILATERAL [...] Destiny Carolina DO 06/15/2024 04:40 PM EST Dictated By: Destiny Carolina DO Signed By: <Electronically signed by Destiny Carolina DO in OV> 06/15/24 1640 DD/ 0733 TD/TT: 06/06/24 0746 Java Golden Gate Developer: Maria Del Carmen Carpio FUSION JUNCTURE GRINDER IMG BI PROCEDURES Final Result * XR HAND WRIST RT (05/26/2024 9:38 AM EST) Anatomical Region Laterality Modality Abdomen Radiographic [place] ging 05/26/2024 9:38 AM EST Narrative 05/26/2024 9:40 AM EST ? [facility] ?[address] ? [place] [address] ?XRay Report ? Signed ? Patient: Thomas Garcia,Steven ?MR#: ?? [id number] ? : 1980 ?Acct:[id number] ? Age/Sex: 43 / F ?ADM Date: 01/18/25 ? Loc: HO.HMGCX ? Attending Dr: Latrice Castano PA-C ? Ordering Physician: Latrice Castano PA-C ?? Date of Service: 05/26/24 ?? Procedure(s): XR hand wrist RT ?? Accession Number(s): [id number] ? cc: Latrice Castano PA-C; Maria Del Carmen Carpio FUSION JUNCTURE GRINDER ? CLINICAL HISTORY: M25.531 - Pain in [...] in OV> ? 05/26/24 0939 ? DD/ 7 ? TD/TT: 05/26/24937 ? Java Golden Gate Developer: ? Procedure Note Donzeketer, Image - 05/26/2024 [facility] [address] [place] [address] [place] [address] XRay Report Signed Patient: Steven GarsiaMR#: [id number] : 1980Acct:[id number] Age/Sex: 43 / FADM Date: 05/26/24 Loc: HO.HMGCX Attending Dr: Latrice Castano PA-C Ordering Physician: Latrice Castano PA-C Date of Service: 05/26/24 Procedure(s): XR hand wrist RT Accession Number(s): [id number] cc: Latrice Castano PA-C; Maria Del Carmen [...] signed by Reece Melissa MD in OV> 05/26/[address]38 DD/ 7 TD/TT: 05/26/2438 Java Golden Gate Developer: [facility] External Provider IMG XR PROCEDURES Final Result * Image-Guided Pap with Age-Based Screening??with CT/NG,??Trichomonas (08/18/2022 9:54 AM EDT) Comment [facility] Comment: This order for age-based cervical cancer and STI screening follows ACOG guidelines(PB 168, 140, XTG762). See individual assays for performing site location. Clinical Information: ABN BLEEDING [facility] LMP: NONE GIVEN [facility] Prev. PAP: NONE GIVEN [facility] Prev. BX: NONE GIVEN [facility] SOURCE: None given [facility] Statement Of Adequacy: [facility] Comment: Satisfactory for evaluation. Endocervical/transformation zone component absent. Interpretation/Re sult: Negative for intraepithelial lesion or malignancy. [facility] Infection Shift in vaginal dayana suggestive of bacterial vaginosis. [facility] COMMENT: This Pap test has been evaluated with computer assisted technology. [facility] Cook Barbecue: [facility] Comment: PEH, CT(ASCP) CT screening location: ??[facility] [address] Slide preparation performed at: [facility], [address] [place] [address] CLIA No. ??[id number] Review Cook Barbecue: [facility] Comment: BGG, SCT(ASCP) CT screening location: ??[facility] [address] Slide preparation performed at: [facility], [address] [place] [address] CLIA No. ??[id number] (Always Message) [facility] Comment: EXPLANATORY NOTE: The Pap is [...] HPV nRNA E6/E7 Not Detected Not Detected [facility] Comment: Methodology: Abstract Writer-Mediated Amplification This assay detects E6/E7 viral messenger RNA (mRNA) from 14 high-risk HPV types (16,18,31,33,35,39,45,51,52,56,58,59,66,68). Cervical sources are required for HPV testing. If a vaginal source from a patient who has had a total hysterectomy with removal of cervix was submitted, please contact the testing laboratory for alternative testing options. For additional information, please refer to http://CamPlex.Aquto/faq/HAM831b6 (This link if provided for information/ educational purposes only.) Chlamydia trachomatis RNA, TMA, Urogenital NOT DETECTED NOT DETECTED [facility] Neisseria gonorrhoeae RNA, TMA, Urogenital NOT DETECTED NOT DETECTED [facility] (Always Message) Que st [facility] Comment: The analytical performance characteristics of this assay, when used to test SurePath(TM) specimens have been determined by [facility]. The modifications have not been cleared or approved by the FDA. This assay has been validated pursuant to the CLIA regulations and is used for clinical purposes. For additional information, please refer to https://CamPlex.CrowdBouncer.BuzzCity/faq/KDD767 (This link is being provided for information/ educational purposes only.) Trichomonas vaginalis, QL, TMA, PAP Vial NOT DETECTED NOT DETECTED [facility] Comment: The analytical performance characteristics of this assay have been determined by [facility]. The modifications have not been cleared or approved by the FDA. This assay has been validated pursuant to the CLIA regulations and is used for clinical purposes. For additional information, please refer to http://CamPlex.Aquto/ faq/Trichomonastma (This link is being provided for information/ educational purposes only.) Cytology specimen container (physical object) 08/18/2022 9:54 AM EDT 08/19/2022 2:08 AM EDT Amparo Barker CNM LAB CYTOLOGY ORDERABLES F inal Result [facility] [address], [place] [address] [facility] [address], [address] [place] [address] [facility] [address] [place] [address] * HIV 1/2 ANTIGEN/ANTIBODY,FOURTH GENERATION W/RFL (02/22/2022 11:42 AM EDT) Pathologist [facility] HIV-1/2 ANTIGEN AND ANTIBODIES, 4TH GENERATION W/ [...] ? For additional information please refer to http://education.Aquto/faq/GNC487 (This link is being provided for informational/ educational purposes only.) ? The performance of this assay has not been clinically validated in patients less than 2 years old. ?? 02/22/2022 11:4 2 AM EDT Maria Del Carmen Ragland FUSION JUNCTURE GRINDER LAB BLOOD ORDERABLES Final Res ult CONVERTED LEGACY LABS from Last 3 Months or Most Recently Relevant to Health Maintenance Insurance BCBS PPO Care Teams Shafting Worker Relationship Specialty Start Date End Date Maria Del Carmen Carpio FNP [address] [place] [address] PCP - General Family Medicine 04/08/22 Parul Killian MD [address] [place] [address] [place] [address] Neurology 06/11/24
--- OUTSIDE RECORDS SUMMARY | 2024-07-12 07:31 | XMS_ITS ---
Author Organization [facility] [place] Address [address] [place] [address] Care Team Providers Care Tongue And Quarter Stitcher Name Role Phone Maria Del Carmen Carpio Primary Care Provider Monica Menon Unavailable [phone] Allergies Allergen (clinical drug ingredient) Drug/Non Drug [...] day Active Ciclopirox 0.77 % 1 application Cake Stripper ally Twice a day for 365 days [...] 06/03/2023 Encounters Encounter Location Date Provider Diagnosis [facility] [place] [address] [place] [address] 06/03/2023 Monica Morgan Fungal infection of nail B35.1 and Ingrown nail L60.0 Assessments Encounter Date Diagnosis (ICD Code) Assessment Notes Treatment Notes Treatment Clinical Notes Section Notes 06/03/2023 Fungal infection of nail (ICD-10 - B35.1) 06/03/2023 Ingrown nail (ICD-10 - L60.0) Plan Of Treatment Medication Medication Name Sig Start Date Stop Date Notes Ciclopirox 0.77 % 1 application Cake Stripper ally Twice a day for 365 days [...] Motrin was recommended for pain or discomfort (13506) Anesthesia 3cc of 1 percent Lid ocaine Plain local anesthesic utilizing aseptic technique Location Bilateral nail borde r , T5 Progress Notes * Steven GUZMANDOB:[birth year] (42 yo F)Acc No.[id number]:06/03/2023 Progress Notes Patient:?Thomas, Sugeilen Provider:?Monica Morgan DPM :1980???Age:42 Y???Sex:Female D ate:06/03/2023 Address:[address], [place], [place] Pcp:Maria Del Carmen Carpio Subjective: * Chief [...] ?Exercise: yes, walking. ?Marital status: . 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 * Medications:?TakingGabapenti n 300 MG Capsule 1 [...] Motrin was recommended for pain or discomfort (38593).? * Procedure Codes:?73172 Avuls ion Plate, Modifiers: XS * Preventive [...] Morgan DPM Date:? Generated for Ritu abreu/Slava/Dieudonne on:?07/12/2024 07:31 AM EST History and Physical Notes * HPI [...]
[2024-07-17 12:29] VITALS: BP 107/59; PULSE 74; RESP 18; TEMP 36.8; O2SAT 97
[2024-07-17 12:30] VITALS: BMI 30.1
--- NOTE | 2024-07-17 12:36 | MHC.SHP ---
Pre-Procedural Eval Section A - 24 Hr Update-Section A only Date of Service: 07/17/24 The patient is an INPATIENT: No Changes since office visit: No Cold of Flu in the past 2 weeks, No New Medical Problems, No Changes in Medication and No Patient answered all questions The patient has been examined within 24 hours of the surgical procedure. The History & Physical has been completed within 30 days and I have reviewed it.: Yes Section B - Complete if H&P > 30 days Chief Complaint: Carpal tunnel syndrome, left upper limb Allergies: Allergies Allergy/AdvReac Type Severity Reaction Status Date / Time Sulfa (Sulfonamide Allergy Unknown Unknown Verified 07/17/24 12:32 Antibiotics) Plan Diagnosis/Plan: Unchanged I have reviewed the history and physical and performed a pertinent physical examination on my patient. No changes have occurred unless specified. Time Spent With Patient Time: Total time managing care of this patient today ____ minutes.
--- NOTE | 2024-07-17 12:37 | W.PM.OPN ---
Operative Note Operative Note Date of Service: 07/17/24 Narrative: Preop diagnosis: 1. Left Carpal tunnel syndrome Postop diagnosis: same Procedure: 1. Left Carpal tunnel release Surgeon: Kalyn Hernandez MD Licensed Plumber: Olayinka MRACANO Anesthesia: local block using 1% lidocaine with epinephrine Findings: Thickened transverse carpal ligament. EBL: Less than 5 mL Specimens: None Complications: None Disposition: Brought to recovery room in stable condition Plan: Follow-up for 10-14 days for wound check and suture removal Indications: The patient is 43 years old, with left carpal tunnel syndrome that has been unresponsive to nonoperative management. The risks and benefits of operative treatment including but not limited to risk of damage to blood vessels, nerves, tendons, infection, persistent pain, persistent symptoms, or possible need for additional surgery were discussed with the patient and the patient wishes to proceed with surgery. Procedure: Once consent was obtained a local block was performed using a combination of 1% lidocaine with epinephrine. The patient was then brought back to the operating suite and placed on the operative table in supine position. The left upper extremity was prepped and draped in a standard surgical fashion. Once assured that we had a good block, a 2.0 cm longitudinal incision was made centered over the carpal tunnel. The incision was made through the skin to the subcutaneous tissues using a #15 blade. Dissection was made down to the level of the transverse carpal ligament with care being taken to protect the palmar cutaneous nerve. Once the transverse carpal ligament was clearly visualized, a longitudinal incision was made in the transverse carpal ligament 1st using a #15 blade, then using tenotomy scissors under direct visualization. Care was taken to look for and protect the motor branch of the median nerve when seen in this area. Once satisfied with our carpal tunnel release the wound was copiously irrigated with normal saline and hemostasis was obtained with a brief period of local pressure. The skin edges were reapproximated with some 5.0 nylon suture material and a sterile dressing was applied. The patient appears to have tolerated the procedure well and with no complications. All digits were well vascularized at the conclusion of the case.
[2024-07-17 13:10] VITALS: BP 101/62; PULSE 78; RESP 14; TEMP 36.6; O2SAT 99
== END 2024-07-17 13:15 | disposition home or self-care (01) ==
PROVIDERS: PCP Registered Nurse; Visit Provider Orthopaedic Surgery
PROC: (CPT 64721; principal; 2024-07-17 15:00)
DX: G56.02 Carpal tunnel syndrome, left upper limb (principal); R20.0 Anesthesia of skin; R20.2 Paresthesia of skin; M79.7 Fibromyalgia; Z88.2 Allergy status to sulfonamides
CPT/HCPCS: 64721; J0171; J2003

== ENCOUNTER → 2024-07-17 12:08 | Outpatient (BNV) | payer BC, SELFPAY | PROVIDERS: PCP Registered Nurse; Visit Provider Orthopaedic Surgery | DX: G56.02 Carpal tunnel syndrome, left upper limb (principal) | CPT/HCPCS: 64721 ==

== ENCOUNTER 2024-08-01 14:18 | Outpatient (AMB) | payer BC, SELFPAY ==
--- NOTE | 2024-08-01 14:25 | MHC.OFFVIS ---
Vital Signs 08/01/24 14:35 Height 4 ft 11 in Weight 149 lb BMI 30.1 Handedness Right Intake Visit Reasons: PO LT CTR 07/17/24 AR Intake Note: Steven is a 44 year old right hand dominant female who presents today for a post operative visit s/p left carpal tunnel release DOS: 07/17/24 w/ Dr Kalyn Hernandez. Patient states she does not feel numbness or tingling however has a sharp pain occasionally on the ulnar palmar aspect of her left hand. Sutures removed and steri strips applied. Ballroom Dance Instructor Required: Yes Ballroom Dance Instructor Language: Drop Worker Services: Ballroom Dance Instructor Present Ballroom Dance Instructor Name: Dary CCMA/LM Allergies Sulfa (Sulfonamide Antibiotics) Allergy (Unknown, Verified 08/01/24 14:36) Unknown HPI HPI PO LT CTR 07/17/24 AR: Details: Steven is a 44 year old right hand dominant female who presents today for a post operative visit s/p left carpal tunnel release DOS: 07/17/24 w/ Dr Kalyn Hernandez. Patient states she does not feel numbness or tingling however has a sharp pain occasionally on the ulnar palmar aspect of her left hand. Sutures removed and steri strips applied. Patient states she is interested in getting signed up for right-sided carpal tunnel release in the office today. [facility] Medical History Depression Anxiety Smoker Fibromyalgia Surgical History Hx of section Hx of reduction mammoplasty Social History Are you a primary wound care specialist to a significant other at home: No Do you presently have visiting nurse or other home services: No Patient Tobacco Use Status: Current everyday Tobacco user Tobacco use type: Cigarette Review of Systems Const All systems reviewed & are unremarkable except as noted in HPI and below Physical Exam Vital Signs: BMI result Body Mass Index 30.1 Extrem Other: Neuro: Normal sensation of the tips of all digits of bilateral hands in the office today No thenar or intrinsic wasting. Good APB muscle firing and good finger cross. Vascular: Capillary refill brisk. ROM: Patient can make a fist and extend all their digits. Skin: Well approximated and well healing incision site noted on the volar left wrist No lacerations or abrasions noted. General: No ecchymosis. No erythema or evidence of infection. Assessment & Plan Assessment & Plan (1) Bilateral carpal tunnel syndrome: Code(s): G56.03 - Carpal tunnel syndrome, bilateral upper limbs Category: Medical Plan 1. Carpal tunnel syndrome, left Status post carpal tunnel release DOS 07/17/2024 Patient appears to be recovering well postoperatively Patient is educated about the typical recovery course At this time, patient was informed she will require no acute follow-up with us postoperatively, as she appears to be recovering very well Patient was amenable to this plan 2. Carpal tunnel syndrome, right Symptoms intermittent, daily, worse at night I educated the patient about the condition. I discussed both operative and nonoperative treatment options. The patient would like to proceed with surgery. The risks and benefits of operative treatment were discussed with the patient and the patient wishes to proceed with surgery. These risks include, but are not limited to, risk of damage to blood vessels, nerves, tendons, infection, recurrence, incomplete relief of preoperative symptoms, persistent pain, possible need for further surgery, and the risks associated with regional blocks and/or anesthesia. Plan is to take the patient to the operating room at some point in the next few weeks for the following procedures: 1. Right carpal tunnel release under local All of the preoperative paperwork including the consent was discussed today. All of the patient's questions were answered in the clinic today. The patient understands that they will be in contact with our surgical lead to discuss scheduling their procedure. Patient denies diabetes, blood thinners, asthma, heart issues, lung issues, kidney issues, or current smoking. Coding Level of Care Code Est Pt Level 4 (16638) Diagnoses Bilateral carpal tunnel syndrome G56.03
[2024-08-01 14:35] VITALS: BMI 30.1
== END 2024-08-01 15:12 | disposition home or self-care (01) ==
LOC: HO.HOS 14:18
PROVIDERS: PCP Registered Nurse
DX: G56.03 Carpal tunnel syndrome, bilateral upper limbs (principal)
CPT/HCPCS: 99214

== ENCOUNTER 2024-10-22 07:22 | Day surgery (SDC) | payer BC, SELFPAY ==
[2024-10-22 07:44] VITALS: BP 124/76; PULSE 71; RESP 16; TEMP 36.2; O2SAT 98; BMI 28.3
--- NOTE | 2024-10-22 07:57 | MHC.SHP ---
Pre-Procedural Eval Section A - 24 Hr Update-Section A only Date of Service: 10/22/24 The patient is an INPATIENT: No Changes since office visit: No Cold of Flu in the past 2 weeks, No New Medical Problems, No Changes in Medication and No Patient answered all questions The patient has been examined within 24 hours of the surgical procedure. The History & Physical has been completed within 30 days and I have reviewed it.: Yes Section B - Complete if H&P > 30 days Chief Complaint: Carpal tunnel syndrome, right upper limb Allergies: Allergies Allergy/AdvReac Type Severity Reaction Status Date / Time Sulfa (Sulfonamide Allergy Unknown Unknown Verified 08/01/24 14:36 Antibiotics) Plan Diagnosis/Plan: Unchanged I have reviewed the history and physical and performed a pertinent physical examination on my patient. No changes have occurred unless specified. Time Spent With Patient Time: Total time managing care of this patient today ____ minutes.
--- NOTE | 2024-10-22 07:58 | P.OP_ITS ---
Operative Note Operative Note Date of Service: 10/22/24 Narrative: Preop diagnosis: 1. Right Carpal tunnel syndrome Postop diagnosis: same Procedure: 1. Right Carpal tunnel release Surgeon: Kalyn Hernandez MD Electromechanisms Design Drafter: None Anesthesia: local block using 1% lidocaine with epinephrine Findings: Thickened transverse carpal ligament. EBL: Less than 5 mL Specimens: None Complications: None Disposition: Brought to recovery room in stable condition Plan: Follow-up for 10-14 days for wound check and suture removal Indications: The patient is 44 years old, with right carpal tunnel syndrome that has been unresponsive to nonoperative management. The risks and benefits of operative treatment including but not limited to risk of damage to blood vessels, nerves, tendons, infection, persistent pain, persistent symptoms, or possible need for additional surgery were discussed with the patient and the patient wishes to proceed with surgery. Procedure: Once consent was obtained a local block was performed using a combination of 1% lidocaine with epinephrine. The patient was then brought back to the operating suite and placed on the operative table in supine position. The right upper extremity was prepped and draped in a standard surgical fashion. Once assured that we had a good block, a 2.0 cm longitudinal incision was made centered over the carpal tunnel. The incision was made through the skin to the subcutaneous tissues using a #15 blade. Dissection was made down to the level of the transverse carpal ligament with care being taken to protect the palmar cutaneous nerve. Once the transverse carpal ligament was clearly visualized, a longitudinal incision was made in the transverse carpal ligament 1st using a #15 blade, then using tenotomy scissors under direct visualization. Care was taken to look for and protect the motor branch of the median nerve when seen in this area. Once satisfied with our carpal tunnel release the wound was copiously irrigated with normal saline and hemostasis was obtained with a brief period of local pressure. The skin edges were reapproximated with some 5.0 nylon suture material and a sterile dressing was applied. The patient appears to have tolerated the procedure well and with no complic ations. All digits were well vascularized at the conclusion of the case.
[2024-10-22 09:26] VITALS: BP 137/71; PULSE 53; RESP 16; O2SAT 98
== END 2024-10-22 09:40 | disposition home or self-care (01) ==
PROVIDERS: PCP Registered Nurse; Visit Provider Orthopaedic Surgery
PROC: (CPT 64721; principal; 2024-10-22 07:30)
DX: G56.01 Carpal tunnel syndrome, right upper limb (principal); M79.642 Pain in left hand; M79.7 Fibromyalgia; F32.A Depression, unspecified; F41.9 Anxiety disorder, unspecified; Z88.2 Allergy status to sulfonamides; Z98.890 Other specified postprocedural states; F17.210 Nicotine dependence, cigarettes, uncomplicated
CPT/HCPCS: 64721; J0171; J2003

== ENCOUNTER → 2024-10-22 07:22 | Outpatient (BNV) | payer BC, SELFPAY | PROVIDERS: PCP Registered Nurse; Visit Provider Orthopaedic Surgery | DX: G56.01 Carpal tunnel syndrome, right upper limb (principal) | CPT/HCPCS: 64721 ==

== ENCOUNTER 2024-11-06 13:37 | Outpatient (AMB) | payer BC, SELFPAY ==
--- OUTSIDE RECORDS SUMMARY | 2024-08-03 05:30 | XMS_ITS ---
Author Organization [facility] Address [address] [place] [address] Care Team Providers Care Postal Support Employee Name Role Phone Maria Del Carmen Carpio Primary Care Provider Monica Menon Unavailable [phone] Medications Medication SIG (Take, Route, Fr equency, [...] day Active Ciclopirox 0.77 % 1 application Tire Fixer ally Twice a day; Duration: 365 days Active hydrOXYzine HCl 10 MG 1 tablet as needed Orally Once a day Active Encounters Encounter Location Date Provider Diagnosis [facility] [address] [place] [address] 08/03/2024 Monica Morgan Plan Of Treatment No Information Progress Notes * Steven GUZMANDOB:[birth year] (44 yo F)Acc No.[id number]:08/03/2024 Progress Note Patient: Andrea COBIANantionette Provider: Danika Morgan DPM :1980 A ge:44 Y S ex:Female Date:08/03/2024 Address:[address] [place] [address] [place], [place] Pcp:Maria Del Carmen Carpio Subjective: * Chief [...] 08/03/2024 Generated for Ritu abreu/Slava/Dieudonne on: 0 11/06/2024 02:45 PM EDT
--- NOTE | 2024-11-06 13:52 | MHC.OFFVIS ---
Vital Signs 11/06/24 13:53 Height 4 ft 11 in Weight 140 lb BMI 28.3 Intake Visit Reasons: PO-Rt CTR 10/22/24 Intake Note: Steven is a 44 year old right hand dominant female who presents today for a post operative visit s/p right carpal tunnel release DOS: 10/22/24 w/ Dr Kalyn Hernandez. States her syptoms have improved however she is now having elbow pain. Allergies Sulfa (Sulfonamide Antibiotics) Allergy (Unknown, Verified 11/06/24 13:54) Unknown HPI HPI PO-Rt CTR 10/22/24: Details: Steven is a 44 year old right hand dominant female who presents today for a post operative visit s/p right carpal tunnel release DOS: 10/22/24 w/ Dr Kalyn Hernandez. States her syptoms have improved however she is now having elbow pain in both elbows, but the patient feels that this is unrelated to her surgery. Denies ongoing numbness or tingling. No other acute complaints or concerns at this time. [facility] Medical History (Updated 08/01/24 @ 17:31 by KRYS Rudolph) Depression Anxiety Smoker Fibromyalgia Surgical History History of carpal tunnel release Hx of section Hx of reduction mammoplasty Social History Are you a primary caretaker resort to a significant other at home: No Do you presently have visiting nurse or other home services: No Comment: counts correct Patient Tobacco Use Status: Current everyday Tobacco user Tobacco use type: Cigarette Review of Systems Const All systems reviewed & are unremarkable except as noted in HPI and below Physical Exam Vital Signs: BMI result Body Mass Index 28.3 Extrem Other: Neuro: Normal sensation of the tips of all digits of bilateral hands in the office today No thenar or intrinsic wasting. Good APB muscle firing and good finger cross. Vascular: Capillary refill brisk. ROM: Patient can make a fist and extend all their digits. Skin: Well approximated and well healing incision site noted on the volar right wrist No lacerations or abrasions noted. General: No ecchymosis. No erythema or evidence of infection. Assessment & Plan Assessment & Plan (1) Bilateral carpal tunnel syndrome: Code(s): G56.03 - Carpal tunnel syndrome, bilateral upper limbs Category: Medical Plan 1. Carpal tunnel syndrome, right Status post carpal tunnel release DOS 07/17/2024 Patient appears to be recovering well postoperatively Patient is educated about the typical recovery course At this time, patient was informed she will require no acute follow-up with us postoperatively, as she appears to be recovering very well Patient was amenable to this plan Coding Level of Care Code Global (03639) Diagnoses Bilateral carpal tunnel syndrome G56.03
[2024-11-06 13:53] VITALS: BMI 28.3
--- OUTSIDE RECORDS SUMMARY | 2024-11-06 14:46 | XMS_ITS | Encounter Summary ---
Author Organization [employer] Address [address] [place] [address] [address] [place] [address] Care Team Providers Care Car Mechanic Name Role Phone Maria Del Carmen Carpio Primary Care Provider Parul Killian MD Unavailable + [phone] Reason for Visit * Reason Onset Date Comments Reschedule 2023 Encounter Details Date Type Department Care Team (Late Contact Info) Description 2023 Telephone [facility] [address] [place] [address] Maria Del Carmen Carpio FNP [address] [place] [address] Reschedule Social History Tobacco Use Types Packs/Day [...] documented in this encounter Plan of Treatment Upcoming Encounters Date Type Department Care Team (Late st Contact Info) Description 01/18/2025 1:45 PM EDT Office Visit [facility] [address] [place] [address] Maria Del Carmen Carpio FNP [address] [place], [place] [id number] documented as of this encounter Visit Diagnoses Not on filedocumented in this encounter Care Teams Car Mechanic Relationship Specialty Start Date End Date Maria Del Carmen Carpio FNP [address] [place] [address] PCP - General Family Medicine 04/08/22 Parul Killian MD [address] [place] [address] [place] [address] Neurology 06/11/24 documented as of this encounter
== END 2024-11-06 13:59 | disposition home or self-care (01) ==
LOC: HO.HOS 13:37
PROVIDERS: PCP Registered Nurse
DX: G56.03 Carpal tunnel syndrome, bilateral upper limbs (principal)
CPT/HCPCS: 99024

== ENCOUNTER 2024-12-07 12:37 | Outpatient (AMB) | payer BC, SELFPAY ==
--- OUTSIDE RECORDS SUMMARY | 2024-08-03 05:30 | XMS_ITS ---
Author Organization [facility] Address [address] [place] [address] Care Team Providers Care Otr Tanker Truck Driver Name Role Phone Maria Del Carmen Carpio Primary Care Provider Monica Menon Unavailable [phone] Medications Medication SIG (Take, Route, Fr equency, Duration) Notes Start Date End Date Status Sertraline HCl 50 MG 1 tablet Orally Once a day Active SUMAtriptan 10 MG/ACT 1 puff at onset of headache may repeat dose after 1 hour up to 3 doses per day as needed Nasally Once a day; Duration: 30 day(s) Active Gabapentin 300 MG 1 capsule Orally Once a day Active Nabumetone 500 MG 1 tablet Orally Twice a day Active Ciclopirox 0.77 % 1 application Sap Hana Architect ally Twice a day; Duration: 365 days Active hydrOXYzine HCl 10 MG 1 tablet as needed Orally Once a day Active Encounters Encounter Location Date Provider Diagnosis [facility] [address] [place] [address] 08/03/2024 Monica Morgan Plan Of Treatment No Information Progress Notes * Steven GUZMANDOB:[birth year] (44 yo F)Acc No.[id number]:08/03/2024 Progress Note Patient: Andrea COBIANvivienvenkat Provider: Danika Morgan DPM :1980 A ge:44 Y S ex:Female Date:08/03/2024 Address:[address] [place] [address] [place], [place] Pcp:Maria Del Carmen Carpio Subjective: * Chief Complaints: * * Medical History: * Medications: T aking Gabapentin 300 MG Capsule 1 capsule Orally Once a day , Taking Nabumetone 500 MG Tablet 1 tablet Orally Twice a day , Taking hydrOXYzine HCl 10 MG Tablet 1 tablet as needed Orally Once a day , Taking SUMAtriptan 10 MG/ACT Solution 1 puff at onset of headache may repeat dose after 1 hour up to 3 doses per day as needed Nasally Once a day , Taking Sertraline HCl 50 MG Tablet 1 tablet Orally Once a day , Taking Ciclopirox 0.77 % Gel 1 application Externally Twice a day Objective: * Vitals: Assessment: Plan: * Treatment: * Images: * The named appointment provid er may or may not be the originator of this progress note, and it is not deemed complete until electronically signed by the appointment provider. Sign off status: Pending * Provider: Danika Morgan DPM Date: 0 08/03/2024 Generated for Ritu abreu/Slava/Dieudonne on: 0 12/07/2024 12:39 PM EDT
--- OUTSIDE RECORDS SUMMARY | 2024-12-07 12:41 | XMS_ITS | Clinical Summary ---
Author Organization [facility] Address [address] [place] [address] Phone Care Team Providers Care Systems Developer Name Role Phone Cherie Talbot MD Primary Care Provider [phone] Allergies Active Allergy Reactions Criticality Noted Date Comments Pineapple 04/03/2024 Sulfa (Sulfonamide Antibiotics) 03/10 Medications hydrOXYzine HCL (ATARAX) 10 MG tablet TAKE 1-2 TABLETS BY MOUTH EVERY NIGHT AT BEDTIME NEEDED FOR SLEEP 02/29/2024 Active sertraline (ZOLOFT) 25 MG tablet 25 mg. 02/29/2024 Active propranoloL (INDERAL) 10 MG immediate release tablet TAKE 1 TABLET BY MOUTH TWICE DAILY NEEDED. TOME 1 NA PASTILLA HASTA DOS VECES AL DEEJAY ALESIA INDICADO NECESITA 12/27/2023 Active Social History Tobacco Use Types Packs/Day Years Used Date Smoking Tobacco: Never Assessed Passive Smoke Exposure: Never Tobacco Cessation:Counseling Given: Not Answered Comments:10 cigarrets/day since 2000 Education Answer Date Recorded Are you interested in more education? Not on vishnu e 02/01/2024 Are you concerned about learning? Not on file 02/01/2024 No 02/01/2024 No 02/01/2024 Digital Access Answer Date Recorded No 02/01/2024 No 02/01/2024 Reliable internet access at home? Not on file 02/01/2024 Device with a working camera? Not on file Comments Unknown Sex and Gender Information Value Date Recorded Sex Assigned at Not on file Legal Sex Female 10:25 AM EDT Gender Identity Not on file Sexual Orientation Not on file Plan of Treatment Upcoming Encounters Date Type Department Care Team (Late st Contact Info) Description 03/24/2026 10:00 AM EST Office Visit [facility] [address] [facility] 3rd [place] [address] Scott Benites MD, PhD [address] [place] [address] [email or web address] [email or web address] Health Maintenance Due Date Last Done Comments Adult Td,Tdap Booster 1980 DEPRESSION SCREENING 1993 SMOKING Hx and SMOKELESS TOB ACCO SCREENING 1994 HEPATITIS C SCREENING 07/29/1999 HIV ONE-TIME SCREENING (18-6 5 YEARS) 07/29/1999 PAP SMEAR 2002 MAMMOGRAM 2021 COVID-19 VACCINE (2023-2 5 season) 2024 HEPATITIS A VACCINES Aged Out No long er eligible based on patient's age to complete this topic HIB VACCINES Aged Out No longer eligi ble based on patient's age to complete this topic MENINGOCOCCAL VACCINES (ACWY) Aged Out No longer eligible based on patient's age to complete this topic MENINGOCOCCAL VACCINES (B) Aged Out N o longer eligible based on patient's age to complete this topic PNEUMOCOCCAL VACCINES (0-49 years) Aged Out No longer eligible based on patient's age to complete this topic Medical Devices Not on file Insurance [facility] OUT OF STATE PPO BLUE CROSS OUT OF STATE PPO BLUE CROSS OUT OF STATE PPO BLUE CROSS OUT OF STATE PPO BLUE CROSS OUT OF STATE PPO BLUE CROSS OUT OF STATE PPO Care Teams Systems Developer Relationship Specialty Start Date End Date Cherie Talbot MD [address] [address] [email or web address] PCP - General Ophthalmology 02/01/24 Additional Source Comments The information contained in this document represents components of the legal health record. It is not the complete legal health record.[facility]
--- OUTSIDE RECORDS SUMMARY | 2024-12-07 12:41 | XMS_ITS | Encounter Summary ---
Author Organization [employer] Address [address] [place] [address] 7[address] [place] [address] Care Team Providers Care Gravity Prospecting Operator Name Role Phone Maria Del Carmen Carpio Primary Care Provider [phone] Parul Killian MD Unavailable + [phone] Reason for Visit * Reason Onset Date Comments Reschedule 2023 Encounter Details Date Type Department Care Team (Late Contact Info) Description 2023 Telephone [facility] [address] [place] [address] Maria Del Carmen Carpio FNP [address] [place] [address] Reschedule Social History Tobacco Use Types Packs/Day [...] Description 01/18/2025 1:45 PM EDT Office Visit [facility] [address] [place] [address] Maria Del Carmen Carpio FNP [address] [place], [place] [phone] documented as of this encounter Visit Diagnoses Not on filedocumented in this encounter Care Teams Gravity Prospecting Operator Relationship Specialty Start Date End Date Maria Del Carmen Carpio FNP [address] [place] [address] PCP - General Family Medicine 04/08/22 Parul Killian MD [address] [place] [address] [place] [address] Neurology 06/11/24 documented as of this encounter
[2024-12-07 12:50] VITALS: BMI 30.3
--- NOTE | 2024-12-07 12:50 | MHC.OFFVIS ---
Vital Signs 12/07/24 12:50 Height 4 ft 11 in Weight 150 lb BMI 30.3 Intake Visit Reasons: New Problem - Bilateral Elbow Pain Intake Note: Parker is a 44 year old right hand dominant female who presents today for a New Problem visit with complaints of Bilateral Elbow Pain. At today's visit she states that she has had Bilateral elbow pain before her surgery in july. Patient states that she has pain radiating up to both shoulders and that both arms feel heavy. Mild Numbness but no tingling. Hx of Right Carpal Tunnel Release 10/22/24 & Left Carpal Tunnel Release 07/17/24 Office Assistance Required: Yes Office Assistance Services: Office Assistance Present Office Assistance Name: Chalo RMA/LM Allergies Sulfa (Sulfonamide Antibiotics) Allergy (Unknown, Verified 12/07/24 12:55) Unknown HPI HPI New Problem - Bilateral Elbow Pain: Details: Parker is a 44 year old right hand dominant female who presents today for a New Problem visit with complaints of Bilateral Elbow Pain. At today's visit she states that she has had Bilateral elbow pain before her surgery in july. Patient's pain is primarily on the interior aspect of bilateral elbows, over the medial epicondyle. Patient states that she has pain radiating up to both shoulders and that both arms feel heavy. Mild Numbness but no tingling. Hx of Right Carpal Tunnel Release 10/22/24 & Left Carpal Tunnel Release 07/17/24 [facility] Medical History (Updated 12/07/24 @ 13:35 by KRYS Rudolph) Depression Anxiety Smoker Fibromyalgia Surgical History History of carpal tunnel release Hx of section Hx of reduction mammoplasty Social History Are you a primary palliative care nurse practitioner to a significant other at home: No Do you presently have visiting nurse or other home services: No Comment: counts correct Patient Tobacco Use Status: Current everyday Tobacco user Tobacco use type: Cigarette Review of Systems Const All systems reviewed & are unremarkable except as noted in HPI and below Physical Exam Vital Signs: BMI result Body Mass Index 30.3 Extrem Other: Patient's bilateral elbows normal to inspection No erythema, ecchymosis, edema noted No lacerations, abrasions, open areas No evidence of infection Patient reports tenderness to palpation of the bilateral medial epicondyles Range of motion of bilateral elbows full and intact Negative Cozen's test bilaterally Positive reverse Cozen's test bilaterally Distal sensation intact Capillary refill brisk Assessment & Plan Assessment & Plan (1) Bilateral medial epicondylitis of elbow joint: Code(s): M77.01 - Medial epicondylitis, right elbow; M77.02 - Medial epicondylitis, left elbow Category: Medical Plan 1. Bilateral medial epicondylitis Patient is educated about this condition Patient is educated about the typical treatment course At this time, OT referral was placed for range of motion and strengthening of bilateral elbows in the setting of medial epicondylitis Patient is educated that if OT is ineffective in getting her any relief over the next 6-8 weeks, she should call us for discussion of further treatment options, including but not limited to injections Patient understands this and is amenable to this plan Follow-up as needed Orders: Orders OT Evaluation and Treatment 12/07/24 M77.01 - Medial epicondylitis, right elbow, M77.02 - Medial epicondylitis, left elbow Coding Level of Care Code Est Pt Level 3 (65761) Diagnoses Bilateral medial epicondylitis of elbow joint M77.01; M77.02
== END 2024-12-07 13:37 | disposition home or self-care (01) ==
LOC: HO.HOS 12:38
PROVIDERS: PCP Registered Nurse
DX: M77.01 Medial epicondylitis, right elbow (principal); M77.02 Medial epicondylitis, left elbow
CPT/HCPCS: 99213

== ENCOUNTER 2025-01-16 10:30 | Outpatient (RCR) | payer BC, SELFPAY ==
--- NOTE | 2024-12-28 11:41 | MHC.OT.EP ---
[facility] Office [address] [phone] F: [phone] F: [phone] Occupational Therapy Plan of Care Patient Name: Steven Garcia Date of Evaluation: 12/28/24 Diagnosis: B/L Medial Epicondylitis Pain Location: Pain in right hand over volar MCP, all my joints and bends fingers Tender over A1 harlan Pain free in elbows as she has been resting Pain Score: 5 Pain Scale Used: Numeric (0 - 10) Aggravating Factors: Home care tasks, gardening Alleviating Factors: Gabapentin, Advil, cream (for hands and elbow) Assessment: 44 yo female w/ hx of B/L CTR, now presents to OT w/ B/L elbow pain. She was assessed in [facility] and referred to OT for medial epicondylitis. She reports pain started earlier this year. She presents pain free in both elbow, but tender to palpate medial epicondyles and w/ palpable fascial adhesions. She has lower griper strength B/L'ly and has some pain, but is post-op CTR B/L'ly this year. We paul continue OT for joint protection, activity modification and progression of functional activity and strengthening. Frequency and Duration: The patient will be seen 2x/wk for 4 weeks Short Term Goals: Ind w/ HEP Progress to strengthening program Ease w/ light bimanual tasks (folding, dishes, etc) Health Lead Goals: Ind w/ progression of strengthening Ind w/ joint protection and activity awareness Treatment Plan: Therapeutic Exercise Therapeutic Activity Home Exercise Program Splinting Patient Education ADL Training Ultrasound MHP Cold Packs Joint Mobilization Soft Tissue Mobilization Kinesiotaping Electronically Signed By: Kaity Muñoz, OTR/L CHT Please Sign and return to therapist. Thank you once again for your referral.
--- NOTE | 2025-01-28 08:15 | MHC.OT.DC ---
[facility] Office [address] [phone] F: [phone] F: [phone] Occupational Therapy Discharge Note Patient Name: Steven Garcia Provider: Olayinka Alvarez pa-c Diagnosis: B/L Medial Epicondylitis Date of Evaluation: 12/28/24 Treatments to Date: 7 Discharge Status: Achieved Goals Improved Function Independent with HEP Discharge Summary: Mp was referred to OT w/ B/L elbow pain. Pt reports pain free in both elbows, but still has pain in right index with tenderness over A1 harlan and reports occasional clicking. She has been wearing nighttime Oval 8 but has been educated on likely trigger finger and will trial self management then follow up w/ MD if needed. Electronically Signed By: Kaity Muñoz OTR/L CHT Reviewed/agree with student documentation: Therapist: Please Sign and return to therapist, thank you for your referral.
== END 2025-01-28 08:16 | disposition home or self-care (01) ==
LOC: HO.OT 10:30
PROVIDERS: PCP Registered Nurse
DX: M77.01 Medial epicondylitis, right elbow (principal); M77.02 Medial epicondylitis, left elbow
CPT/HCPCS: 97110; 97140; 97165; 97535

== ENCOUNTER 2025-04-13 08:24 | Outpatient (REF) | payer BC, SELFPAY ==
--- OUTSIDE RECORDS SUMMARY | 2025-04-13 08:27 | XMS_ITS | Clinical Summary ---
Author Organization [facility] Address [address] [place] [address] Phone Care Team Providers Care Seed Service Advisor Name Role Phone Cherie Talbot MD Primary Care Provider [phone] Allergies Active Allergy Reactions Criticality Noted Date [...] 10:00 AM EST Office Visit [facility] [address] [facility] 3rd [place] [address] Scott Benites MD, PhD [address] [place] [address] [email or web address] Health Maintenance Due Date Last Done Comments Adult Td,Tdap Booster 1981 DEPRESSION SCREENING 1993 SMOKING Hx and SMOKELESS TOB ACCO SCREENING 1994 HEPATITIS C SCREENING 07/29/1999 HIV ONE-TIME SCREENING (18-6 5 YEARS) 07/29/1999 PAP SMEAR 2002 MAMMOGRAM 2021 INFLUENZA VACCINE (#1) 2024 COVID-19 VACCINE (1 - 2024-2 6 season) 2025 HEPATITIS A VACCINES Aged Out No long [...] topic Medical Devices Not on file Insurance [facility] OUT OF STATE PPO BLUE CROSS OUT OF STATE PPO BLUE CROSS OUT OF STATE PPO BLUE CROSS OUT OF [place] [address] [place] [address] OUT [facility] PPO BLUE CROSS OUT OF STATE PPO Care Teams Seed Service Advisor Relationship Specialty Start Date End Date Cherie Talbot MD [address] [address] [email or web address] PCP - General Ophthalmology 02/01/24 Additional Source Comments The information contained in this document represents components of the legal health record. It is not the complete legal health record.[facility]
--- OUTSIDE RECORDS SUMMARY | 2025-04-13 08:27 | XMS_ITS | Encounter Summary ---
Author Organization [employer] Address [address] [facility] 7t [place] [address] Care Team Providers Care Sugar House Supervisor Name Role Phone Maria Del Carmen Carpio Primary Care Provider [phone] Parul Killian MD Unavailable [phone] Reason for Visit * Reason Comments Pre-visit Planning SDOH was already com pleted Encounter Details Date Type Department Care Team ([facility] st Contact Info) Description 04/11/2025 Patient Outreach [facility] [address] [place] [address] Maria Del Carmen Carpio FNP [address] [place], [place] [phone] Pre-visit Planning (SDOH was already completed ) Social History Tobacco Use Types Packs/Day [...] the past 12 months, has t he [employer], gas, oil or water company threatened to [...] Female 03/08/2022 10:40 AM EDT Sexual Orientation Straight 01/21/2025 1: 50 PM EDT documented as of this encounter Progress Notes * Mckenna Guzman - 04/11/2025 3:39 PM EST JANICE Burns placed successful outbound call to patient for pre-visit planning. Patient name and confirmed. Patient confirms appt date and time, and has transportation arrangements. Biggest concern for appointment at this time is no concerns. Appropriate screenings completed in anticipation ofappointment. documented in this encounter Plan of Treatment Upcoming Encounters Date Type Department Care Team (Late st Contact Info) Description 04/19/2025 8:30 AM EST Office Visit [facility] [address] [place] [address] Maria Del Carmen Carpio FNP [address] [place] [address] documented as of this encounter Visit Diagnoses Not on filedocumented in this encounter Additional Health Concerns Assessment Noted Time PHQ-9 Depression Total Score: 6 06/11/19 25 2:35 PM EST documented as of this encounter Care Teams Sugar House Supervisor Relationship Specialty Start Date End Date Maria Del Carmen Carpio FNP [address] [place] [address] PCP - General Family Medicine 04/08/22 Parul Killian MD [address] [place] [address] [place] [address] Neurology 06/11/24 documented as of this encounter
--- OUTSIDE RECORDS SUMMARY | 2025-04-13 08:27 | XMS_ITS | Encounter Summary ---
Author Organization [employer] Address [address] [facility] 7t [place] [address] Care Team Providers Care Mechanical Shop Laborer Name Role Phone Maria Del Carmen Carpio Primary Care Provider [phone] Parul Killian MD Unavailable [phone] Reason for Visit * Reason Onset Date Comments Reschedule 2023 Encounter Details Date Type Department Care Team (Late st Contact Info) Description 2023 Telephone [facility] MEDICINE [address] [place] [address] Maria Del Carmen Carpio FNP [address] [place] [address] Reschedule Social History Tobacco Use Types Packs/Day [...] PM EDT documented as of this encounter Miscellaneous Notes * Telephone Encounter - Emma Agarwal - 2023 3:34 PM EDT Tc from pt requesting r/s Procedure appt. documented in this encounter Plan of Treatment Upcoming Encounters Date Type Department Care Team (Late st Contact Info) Description 04/19/2025 8:30 AM EST Office Visit [facility] [address] [place], [place] [phone] Maria Del Carmen Carpio FNP [address] [place] [address] documented as of this encounter Visit Diagnoses Not on filedocumented in this encounter Care Teams Mechanical Shop Laborer Relationship Specialty Start Date End Date Maria Del Carmen Carpio FNP [address] [place] [address] PCP - General Family Medicine 04/08/22 Parul Killian MD [address] [place] [address] [place] [address] Neurology 06/11/24 documented as of this encounter
--- OUTSIDE RECORDS SUMMARY | 2025-04-13 08:27 | XMS_ITS | Clinical Summary ---
Author Organization [employer] Address [address] [place] [address] 7t [place] [address] Care Team Providers Care Monument Erector Name Role Phone Maria Del Carmen Carpio JONATAN Primary Care Provider [phone] Parul Killian MD Unavailable [phone] Allergies Active Allergy Reactions Criticality Noted Date Comments Orphenadrine 02/22/2022 Sulfa Antibiotics 04/29/2022 Medications dorzolamide (Trusopt) 2 % ophthalmic solution INSTILL 1 DROP IN LEFT EYE THREE TIMES DAILY 04/13/2024 Active hydrOXYzine HCl (Atarax) 10 MG tablet TAKE 1-2 TABLETS BY MOUTH EVERY NIGHT AT BEDTIME NEEDED FOR SLEEP 02/29/2024 Active propranolol (Inderal) 10 MG tablet TAKE 1 TABLET BY MOUTH TWICE DAILY NEEDED. TOME 1 NA PASTILLA HASTA DOS VECES AL DEEJAY ALESIA INDICADO NECESITA 12/27/2023 Active sertraline (Zoloft) 100 MG tablet Take 1 tablet by mouth Once per day. 12/28/2023 Active gabapentin (Neurontin) 100 MG capsuleIndicati ons:Fibromyalgi a Take 2 capsules (200 mg) by mouth at bedtime. 180 capsule 3 01/18/2025 01/19/20 26 Active naproxen (Naprosyn) 500 MG tabletIndicatio ns:Fibromyalgia Take 1 tablet by mouth if needed in the morning and at bedtime for pain. 90 tablet 1 01/18/2025 Active Active Problems Problem Noted Date Diagnosed Date Hyperlipidemia 01/20/2025 Overview (01/20/2025): Lab Results Component Value Date TRIG 187 (H) 07/16/2024 CHOL 185 07/16/2024 LDLCHOLCAL 113 (H) 07/16/2024 HDL 35 (L) 07/16/2024 - Cont lifestyle interventions - Statin: N/A (ASCVD risk score 3.6% in 2024) Assessment & Plan (01/20/2025 1:26 PM EDT): Plan to work on lifestyle modifications and repeat lab 1 week prior to next appt Medial epicondylitis of both elbows 01/20/2025 Assessment & Plan (01/20/2025 1:24 PM EDT): Following with [facility] Ortho Consult Dec 2024 - initial plan for OT Bilateral carpal tunnel syndrome 06/11/2024 Overview (01/20/2025): EMG completed 05/26/23: demonstrated moderately severe right and mild to moderate left median neuropathy across carpal tunnel. Mild bilateral ulnar neuropathy across cubital tunnel. S/P bilateral carpal tunnel release (left on 07/17/24, right on 10/22/24) at [facility] Ortho - Dr. Hernandez Assessment & Plan (01/20/2025 1:25 PM EDT): - Good clinical response to surgery, incisions well healed Assessment & Plan (06/11/2024 6:36 PM EST): - Continues with wrist splints at night and naproxen PRN - Scheduled for [facility] Ortho visit later this month Cubital tunnel syndrome of both upper extremitie s 06/11/2024 Overview (06/11/2024): EMG completed 05/26/23: Mild bilateral ulnar neuropathy across cubital tunnel. Assessment & Plan (06/11/2024 3:03 PM EST): - Consult Jun 2024 at [facility] Ortho Retinitis pigmentosa 06/11/2024 Overview (06/11/2024): Following with [facility] - Dr. Cherie Talbot Consult Mar 2024: no known fam hx with blindness or early vision loss. Recommended genetic testing at [facility] [place] Assessment & Plan (06/11/2024 6:30 PM EST): - Continue following with specialist Abnormal uterine bleeding 09/12/2023 Assessment & Plan (01/20/2025 1:15 PM EDT): Unremarkable pelvic US Jun 2023 Pap August 2022 NILM, HPV neg Scheduled for [facility] at [facility] but did not attend. Then referred to outside [facility]. Denies any further abnormal bleeding following pelvic US Follow up/concerning signs/symptoms reviewed Assessment & Plan (06/11/2024 3:06 PM EST): Unremarkable pelvic US Jun 2023 Pap August 2022 NILM, HPV neg Scheduled for EMB at [facility] but did not attend. Then referred to outside [facility]. Reports that she has not had consult, but no longer with breakthrough bleeding. Follow up/concerning signs/symptoms reviewed Routine health maintenance 04/30/2022 Overview (01/20/2025): -Pap: NILM, HPV neg 08/18/22 -Mammo: BIRADS 2 on 06/06/24 -OPH: established with [facility] -Colon CA screening: routine screening starting at 45 y/o per ACS -Last Physical Exam: 06/11/24 -Hep B: restarted series 01/18/25 Assessment & Plan (04/30/2022 8:04 AM EST): -Pap: due, re-schedule appt -Mammo - reports multiple family members with uterine CA, denies known genetic abnormality such as Bernard syndrome. Screening with mammo previously ordered, pending -Optometry - referred to [facility] 03/26/22 -Colon CA screening: routine screening starting at 45 y/o per ACS Tobacco use 04/29/2022 Assessment & Plan (01/20/2025 1:25 PM EDT): -Cont smoking daily -Smoking cessation counseling provided Assessment & Plan (06/11/2024 6:37 PM EST): [...] -Continue with [facility] acupuncture clinic -Increase gabapentin to 200mg nightly. [...] Encounters Date Type Department Care Team Description 04/11/2025 Patient Outreach [facility]ED[facility] [address] [place] [address] Maria Del Carmen Carpio FNP Pre-visit Planning ([facility] was already completed ) 02/18/2025 10:30 AM EDT Nurse Only [facility] [address] [place] [address] Stephanie Kapoor, GHISLAINE Encounter for immunization 02/18/2025 Travel 02/13/2025 Travel 01/18/2025 1:45 PM EDT Office Visit [facility] [address] [place] [address] Maria Del Carmen Carpio FNP Bilateral carpal tunnel syndrome (Primary Dx); Encounter for immunization; Fibromyalgia; Routine health maintenance; Dietary counseling; Exercise counseling; Abnormal uterine bleeding; Mixed hyperlipidemia; Medial epicondylitis of both elbows; Tobacco use 01/18/2025 Travel 01/17/2025 Telephone [facility] [address] [place] [address] Maria Del Carmen Carpio FNP chart prep 01/15/2025 Travel from Last 3 Months Immunizations Immunization Administration Dates Next Due HepB-CpG 02/18/2025,01/18/2025 Tdap 01/18/2025 Family History Medical History Relation Name Comments [...] Orientation Straight 01/21/2025 1: 50 PM EDT Last Filed Vital Signs Vital Sign Reading Time Taken Comments Blood Pressure 110/70 01/18/2025 1:28 PM EDT Pulse 72 01/18/2025 1:28 PM EDT Temperature 36.2 C (97.1 F) 01/18/2025 1:28 PM EDT Respiratory Rate 18 01/18/2025 1:28 PM EDT Oxygen Saturation 97% 01/18/2025 1:28 PM EDT Inhaled Oxygen Concentration - - Weight 67.6 kg (149 lb) 01/18/2025 1:28 PM EDT Height 151.1 cm (4' 11.5 ) 01/18/2025 1:28 PM ED T Body Mass Index 29.59 01/18/2025 1:28 PM EDT Plan of Treatment Upcoming Encounters Date Type Department Care Team (Late st Contact Info) Description 04/19/2025 8:30 AM EST Office Visit [facility] [address] [place] [address] Maria Del Carmen Carpio, JONATAN [address] [place] [address] Health Maintenance Due Date Last Done Comments Family Planning (PISQ) 1996 HPV Vaccines (1 - 3-dose series) 1996 Pneumococcal Vaccine: Pediatrics (0 to 5 Years) and At-Risk Patients (6 to 49) Years (1 of 2 - PCV) 2000 COVID-19 Vaccine (2024-2 6 season) 2025 Influenza Vaccine (#1) 2025 Mammogram 06/06/2025 06/06/2024, 06/01/2023 Depression Screening 06/11/2025 06/11/2024, 06/11/2024 SDOH Screening 06/11/2025 06/11/2024 Tobacco Screening 06/11/2025 06/11/2024 Pap Smear 08/18/2025 08/18/2022 Disability Screening 01/15/2026 01/15/2025 Alcohol/Substance Use Screening 01/18/2026 01/18/2025 Cervical Cancer Screening 08/19/2027 HPV/Cotest 08/19/2027 08/18/2022 Lipid Panel 07/16/2029 07/16/2024 Zoster Vaccines (1 of 2) 07/29/2031 DTaP/Tdap/Td Vaccines (2 - T d or Tdap) 01/18/2035 01/18/2025 RSV Patients and Patients Aged 60 years or older (1 - 1-dose 75+ series) 2056 HIV Screening Completed 07/16/2024, 02/22/2022 Hepatitis C Screening Completed 07/16/2024 Hepatitis B Vaccines Completed 02/18/2025, 01/18/2025 HIB Vaccines Aged Out No longer eligi ble based on patient's age to complete this topic Hepatitis A Vaccines Aged Out No long er eligible based on patient's age to complete this topic IPV Vaccines Aged Out No longer eligi ble based on patient's age to complete this topic Meningococcal B Vaccine Aged Out No l onger eligible based on patient's age to complete [...] Procedure Name Priority Date/Time Associated Diagnosis Comments HEPATITIS C VIRAL RNA, QUANTITATIVE, REAL-TIME PCR Routine 07/16/2024 6:15 AM EDT Routine health maintenance HIV 1/2 ANTIGEN/ANTIBODY, FOURTH GENERATION W/RFL Routine 07/16/2024 6:15 AM EDT Routine health maintenance LIPID PANEL, STANDARD Routine 07/16/2024 6:15 AM EDT Routine health maintenance BI MAMMOGRAM SCREENING TOMOSYNTHESIS BILATERAL Routine 06/06/2024 7:33 AM EST IMAGE-GUIDED PAP W/AGE BASED SCR,W/CT/NG/TRICH Routine 08/18/2022 9:54 AM EDT Cervical cancer screening Encntr screen for infections w sexl mode of transmiss from Last 3 Months or Most Recently Relevant to Health Maintenance Results * Hepatitis C Viral RNA, Quantitative, Real-Time PCR (07/16/2024 6:15 AM EDT) Pathologist [facility] Hepatitis C Viral Load <15 NOT DETECTED NOT DETECTED IU/mL [facility] HCV Log PCR <1.18 NOT DETECTED NOT DETECTED Log IU/mL [facility] Comment:For additional infor jorge, please refer tohttp://education.Sincerely/faq/HIP74w5(This link is being provided for informational/educational purposes only.)THIS TEST WAS PERFORMED AT:[id number] [place] [phone] GONZALEZ MD Blood 07/16/2024 6:15 AM EDT 07/16/2024 10:31 AM EDT Maria Del Carmen Carpio TAKE OFF MAN LAB BLOOD ORDERABLES Final Res ult [facility] [address] [place] [address] [phone] * HIV-1/2 Antigen and Antibodies, Fourth Generation, with Reflexes (07/16/2024 6:15 AM EDT) Pathologist [facility] HIV AB/AG Nonreactive Nonreactive [facility] Comment:HIV-1 p24 Ag and/or HIV-1/HIV-2 Ab not detected.A test result that is nonreactive does not exclude thepossibility of exposure to or infection with HIV-1 and/orHIV-2. Nonreactive results in this assay for individualswith prior exposure to HIV-1 and/or HIV-2 may be due toantigen and antibody levels that are below the limit ofdetection of this assay.The [employer] HIV Ag/Ab Combo assay result andsupplemental assay results should be interpreted inconjunction with the patient's clinical presentation,history and other laboratory results. If the results areinconsistent with clinical evidence, additional testing issuggested to confirm the result. Blood Venous blood specimen / Unknown 07/16/2024 6:15 AM EDT 07/16/2024 10:31 AM EDT us Maria Del Carmen Carpio TAKE OFF MAN LAB BLOOD ORDERABLES Final Res ult [facility] [address] [place] [address] [phone] * (ABNORMAL) Lipid Panel, Standard (07/16/2024 6:15 AM EDT) Triglycerides 187(H) <150 mg/dL [facility] Comment:Desirable Triglyceri de: less than 150 mg/dLBorderline High Triglyceride 150-199 mg/dLHigh Triglyceride: 200-499 mg/dLVery High Triglyceride: greater than or equal to 5OO mg/dL Cholesterol 185 <200 mg/dL [facility] Comment:Desirable Cholestero l: less than 200 mg/dLBorderline High Cholesterol: 200-239 mg/dLHigh Cholesterol: greater than 239 mg/dL LDL Cholesterol Calculated 113(H) <100 mg/dL [facility] Comment:Desirable LDL: less than 100 mg/dLNear Optimal/Above Optimal LDL: 110- 129 mg/dLBorderline High LDL: 130-159 mg/dLHigh LDL: 160-189 mg/dLVery High LDL: greater than or equal to 190 mg/dL HDL Cholesterol 35(L) >40 mg/dL [facility] Comment:Desirable HDL: great er than 40 mg/dL Note: This HDL assay may give artificially low results in patients with liver disease. Blood Venous blood specimen / Unknown 07/16/2024 6:15 AM EDT 07/16/2024 10:31 AM EDT us Maria Del Carmen Carpio TAKE OFF MAN LAB BLOOD ORDERABLES Final Res ult [facility] [address] [place] [address] [phone] * BI Mammogram Screening Tomosynthesis Bilateral (06/06/2024 7:33 AM EST) Anatomical Region Laterality Modality Breast Bilateral Mammography 06/06/2024 7:33 AM EST Narrative 06/15/2024 4:43 PM EST [facility] [address] [place] [address] Mammography Report Signed Patient: Elisa Garsia MR#: [id number] : 1980 Acct:[id number] Age/Sex: 43 / F ADM Date: 06/06/24 Loc: HO.MAMMO Attending Dr: Maria Del Carmen Carpio TAKE OFF MAN Ordering Physician: Maria Del Carmen Carpio Results: 2Benig n Findings Date of Service: 06/06/24 Follow Up: 1 Year From [facility] Mammogram Procedure(s): MM tomosynthesis screening BI Accession Number(s): [id number] cc: Maria Del Carmen Carpio EXAMINATION: MM [...] 06/15/24 1640 DD/ 0733 TD/TT: 06/06/24 0746 Marine Electronics Technician: Procedure Note Donotuseinterpreter, Image - [facility] [address] [place], [place] [address] Mammography Report Signed Patient: Elisa GarsiaMR#: [id number] : 1980Acct:[id number] Age/Sex: 43 / FADM Date: 06/06/24 Loc: HO.MAMMO Attending Dr: Maria Del Carmen Carpio TAKE OFF MAN Ordering Physician: Maria Del Carmen Carpio FNPResults: 2Benig n Findings Date of Service: 06/06/24Follow Up: 1 Year From Orig ina Mammogram Procedure(s): MM tomosynthesis screening BI Accession Number(s): [id number] cc: Maria Del Carmen Carpio TAKE OFF MAN EXAMINATION: MM SCREENING DIGITAL BREAST TOMOSYNTHESIS, BILATERAL [...] 06/15/24 1640 DD/ 0733 TD/TT: 06/06/24 0746 Marine Electronics Technician: Maria Del Carmen Carpio TAKE OFF MAN IMG BI PROCEDURES Final Result * Image-Guided Pap with Age-Based Screening??with CT/NG,??Trichomonas (08/18/2022 9:54 AM EDT) Comment [facility] Comment: This order for age-based cervical cancer and STI screening follows ACOG guidelines(PB 168, 140, RKP612). See individual assays for performing site location. Clinical Information: ABN BLEEDING [facility] LMP: NONE GIVEN [facility] Prev. PAP: NONE GIVEN [facility] Prev. BX: NONE GIVEN [facility] SOURCE: None given [facility] Statement Of Adequacy: [facility] Comment: Satisfactory for evaluation. Endocervical/transformation zone component absent. Interpretation/Re sult: Negative for intraepithelial lesion or malignancy. [facility] Infection Shift in vaginal dayana suggestive of bacterial vaginosis. [facility] Comment: This Pap test has been evaluated with computer assisted technology. [facility] General Manager Food: [facility] [employer] [facility] Comment: PEH, CT(ASCP) CT screening location: [place] [address] Slide preparation performed at: [facility], [address] [place] [phone] CLIA No. [id number] Review General Manager Food: [facility] Comment: BGG, SCT(ASCP) CT [place] [address] Slide preparation performed at: [facility], [address] [place] [address] CLIA No. [id number] (Always Message) [facility] Comment: EXPLANATORY NOTE: The Pap is a [...] HPV nRNA E6/E7 Not Detected Not Detected [facility] Comment: Methodology: Vegetable Washer-Mediated Amplification This assay detects E6/E7 viral messenger RNA (mRNA) from 14 high-risk HPV types (16,18,31,33,35,39,45,51,52,56,58,59,66,68). Cervical sources are required for HPV testing. If a vaginal source from a patient who has had a total hysterectomy with removal of cervix was submitted, please contact the testing laboratory for alternative testing options. For additional information, please refer to http://365 docobites.Sincerely/faq/CUE618u6 (This link if provided for information/ educational purposes only.) Chlamydia trachomatis RNA, TMA, Urogenital NOT DETECTED NOT DETECTED [facility] Neisseria gonorrhoeae RNA, TMA, Urogenital NOT DETECTED NOT DETECTED [facility] Comment [facility] Comment: The analytical performance characteristics of this assay, when used to test SurePath(TM) specimens have been determined by [facility]. The modifications have not been cleared or approved by the FDA. This assay has been validated pursuant to the CLIA regulations and is used for clinical purposes. For additional information, please refer to https://365 docobites.Sincerely/faq/PDQ892 (This link is being provided for information/ educational purposes only.) Trichomonas vaginalis, QL, TMA, PAP Vial NOT DETECTED NOT DETECTED [facility] Comment: The analytical performance characteristics of this assay have been determined by [facility]. The modifications have not been cleared or approved by the FDA. This assay has been validated pursuant to the CLIA regulations and is used for clinical purposes. For additional information, please refer to http://365 docobites.Sincerely/ faq/Trichomonastma (This link is being provided for information/ educational purposes only.) Cytology specimen container (physical object) 08/18/2022 9:54 AM EDT 08/19/2022 2:08 AM EDT Amparo Sorensentye CN LAB CYTOLOGY ORDERABLES F inal Result [facility] [address], [place] [address] [facility] [address] [facility], [address] [place] [address] [facility] [address] [place] [address] from Last 3 Months or Most Recently Relevant to Health Maintenance Insurance PPO PPO Care Teams Monument Erector Relationship Specialty Start Date End Date Maria Del Carmen Carpio FNP [address] [place] [address] PCP - General Family Medicine 04/08/22 Parul Killian MD [address] [place] [address] [place] [address] Neurology 06/11/24
[2025-04-13 12:01] LABS: Cholesterol 187 mg/dL (<200); HDL Cholesterol 31 mg/dL (>40); Triglycerides 118 mg/dL (<150)
== END 2025-04-13 08:25 | disposition home or self-care (01) ==
LOC: HO.HMGCLDS 08:24
PROVIDERS: PCP Registered Nurse; Visit Provider Registered Nurse
DX: Z00.00 Encounter for general adult medical examination without abnormal findings (principal); Z13.6 Encounter for screening for cardiovascular disorders
CPT/HCPCS: 36415; 80061